=== PATIENT | female | born 1955 | race Caucasian/White ===

== ENCOUNTER 2017-05-25 11:54 | Emergency (ER) | payer MEDICARE, MEDICAID ==
--- NOTE | 2017-05-25 12:19 | EDM.PDOC ---
ED HPI GENERAL MEDICAL PROBLEM - General Chief Complaint: Neurological Problem Stated Complaint: IN BY AMBULANCE Time Seen by Provider: 05/25/17 11:55 Source of Information: Reports: EMS History Limitations: Reports: Altered Mental Status - History of Present Illness INITIAL COMMENTS - FREE TEXT/NARRATIVE: This 62 yo female patient was brought to the ED by [facility] due to not responding. EMS reports the patient normally lives in the [facility] and responds to verbal stimuli. The [facility] employees report that the patient was not responding normally this morning prompting them to call EMS. Upon arrival, the patient was breathing, but not responding to verbal stimuli. Duration: Minutes:, Constant Location: Reports: Generalized Severity: Moderate Improves with: Reports: None Worsens with: Reports: None Associated Symptoms: Reports: Other (altered mentaion) - Related Data Allergies Allergy/AdvReac Type Severity Reaction Status Date / Time fish derived Allergy Unknown Hives Verified 08/17/15 09:17 haloperidol [From Haldol] Allergy Lethargy Verified 08/17/15 09:17 tuberculin, purified protein Allergy Rash Verified 08/17/15 09:17 deriva [Tuberculin,Purif.Prot.Deriv.] plastic adhesive tape Allergy Severe Blisters Uncoded 04/30/14 12:12 KASSIE hose Allergy Severe Blisters Uncoded 05/20/15 18:12 Home Meds: Home Meds Carboxymethylcellulose Sodium [Refresh Tears 0.5%] 1 drop EYEBOTH BID 10/06/14 [ History] Erythromycin Base [Erythromycin 0.5% Ophth Oint] 1 applic TOP BID 10/06/14 [ History] LORazepam [Ativan] 1 mg PO Q4H PRN #14 tablet 08/29/15 [Rx] Morphine [Morphine 20 MG/ML Soln] 5 mg PO Q6H PRN #1 bottle 08/29/15 [Rx] Past Medical History HEENT History: Reports: Allergic Rhinitis, Glaucoma Cardiovascular History: Reports: Hypertension Gastrointestinal History: Reports: Other (See Below) Other Gastrointestinal History: PICA Other Musculoskeletal History: non weight bearing, contracture Other Neuro History: unresponsive at this time, unable to answer questions; comfort cares Other Psychiatric History: PICA Other Dermatologic History: bilateral legs - Past Surgical History Other HEENT Surgeries/Procedures: 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 - Physical Exam Exam: See Below Exam Limited By: No Limitations General Appearance: Lethargic, Severe Distress, Obese Eye Exam: Bilateral Eye: Other (The patient left eye was surgically removed. 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)) Ears: Normal External Exam, Normal Canal, Hearing Grossly Normal, Normal TMs Nose: Normal Inspection, Normal Mucosa, No Blood Throat/Mouth: Normal Inspection, Normal Lips, Normal Teeth, Normal Gums, Normal Oropharynx, Normal Voice, No Airway Compromise Head Exam: Atraumatic, Normocephalic Neck: Normal Inspection, Supple, Non-Tender, Full Range of Motion Respiratory/Chest: No Respiratory Distress, Lungs Clear, Normal Breath Sounds, No Accessory Muscle Use, Chest Non-Tender Cardiovascular: Normal Peripheral Pulses, Regular Rate, Rhythm, No Edema, No Gallop, No JVD, No Murmur, No Rub GI/Abdominal: Normal Bowel Sounds, Soft, Non-Tender, No Organomegaly, No Distention, No Abnormal Bruit, No Mass (Female) Exam: Deferred Rectal (Female) Exam: Deferred Neuro Exam (Abbreviated): Unresponsive Extremities: Normal Inspection, Normal Range of Motion, Non-Tender, Normal Capillary Refill, Pedal Edema Skin Exam: Dry, Intact, Normal Color, No Rash, Cool Course - Vital Signs Last Recorded V/S: Last Vital Signs Temp 35.4 C 05/25/17 11:55 Pulse 66 05/25/17 13:03 Resp 13 05/25/17 13:03 BP 108/49 L 05/25/17 13:03 Pulse Ox 99 05/25/17 13:03 - Orders/Labs/Meds Orders: Active Orders 24 hr Category Date Time Status EKG Documentation Completion [RC] URGENT Care 05/25/17 11:47 Active Labs: Laboratory Tests 05/25/17 05/25/17 05/25/17 Range/Units 11:49 12:00 12:00 WBC 7.1 (5.0-10.0) 10^3/uL RBC 4.00 L (4.2-5.4) 10^6/uL Hgb 12.4 (12.0-16.0) g/dL Hct 38.2 (37.0-47.0) % MCV 95.5 (80-100) fL MCH 31.0 (27.0-34.0) pg MCHC 32.5 L (33.0-35.0) g/dL Plt Count 77 L (150-450) 10^3/uL Neut % (Auto) 85.7 H (42.2-75.2) % Lymph % (Auto) 6.2 L (20.5-50.1) % Barnes % (Auto) 7.4 (2-8) % Eos % (Auto) 0.6 L (1.0-3.0) % Baso % (Auto) 0.1 (0.0-1.0) % Sodium MEQ/L Potassium Chloride Carbon Dioxide Anion Gap BUN Creatinine Est Cr Clr Drug Dosing Estimated GFR (MDRD) BUN/Creatinine Ratio Glucose POC Glucose 103 (70-105) mg/dl Lactic Acid 1.0 (0.5-2.2) mmol/L Calcium Total Bilirubin AST ALT Alkaline Phosphatase Troponin I (0.00-0.02) ng/ml Total Protein Albumin Globulin Albumin/Globulin Ratio Urine Color (YELLOW) Urine Appearance (CLEAR) Urine pH (5.0-9.0) Ur Specific [place] (1.005-1.030) Urine Protein (NEGATIVE) Urine Glucose (UA) (NEGATIVE) Urine Ketones (NEGATIVE) Urine Occult Blood (NEGATIVE) Urine Nitrite (NEGATIVE) Urine Bilirubin (NEGATIVE) Urine Urobilinogen (0.2-1.0) mg/dL Ur Leukocyte Esterase (NEGATIVE) Urine RBC /HPF Urine WBC (0-5/HPF) /HPF Ur Epithelial Cells /HPF Urine Bacteria (0-FEW/HPF) /HPF 05/25/17 05/25/17 Range/Units 12:00 12:22 WBC (5.0-10.0) 10^3/uL RBC (4.2-5.4) 10^6/uL Hgb (12.0-16.0) g/dL Hct (37.0-47.0) % MCV (80-100) fL MCH (27.0-34.0) pg MCHC (33.0-35.0) g/dL Plt Count (150-450) 10^3/uL Neut % (Auto) (42.2-75.2) % Lymph % (Auto) (20.5-50.1) % Barnes % (Auto) (2-8) % Eos % (Auto) (1.0-3.0) % Baso % (Auto) (0.0-1.0) % Sodium 137 MEQ/L Potassium Not Reportable Chloride Not Reportable Carbon Dioxide Not Reportable Anion Gap Not Reportable BUN Not Reportable Creatinine Not Reportable Est Cr Clr Drug Dosing Not Reportable Estimated GFR (MDRD) Not Reportable BUN/Creatinine Ratio Not Reportable Glucose Not Reportable POC Glucose (70-105) mg/dl Lactic Acid (0.5-2.2) mmol/L Calcium Not Reportable Total Bilirubin Not Reportable AST Not Reportable ALT Not Reportable Alkaline Phosphatase Not Reportable Troponin I < 0.02 (0.00-0.02) ng/ml Total Protein Not Reportable Albumin Not Reportable Globulin Not Reportable Albumin/Globulin Ratio Not Reportable Urine Color Yellow (YELLOW) Urine Appearance Cloudy (CLEAR) Urine pH 8.5 (5.0-9.0) Ur Specific [place] 1.015 (1.005-1.030) Urine Protein Trace H (NEGATIVE) Urine Glucose (UA) Negative (NEGATIVE) Urine Ketones Negative (NEGATIVE) Urine Occult Blood Trace-intact H (NEGATIVE) Urine Nitrite Negative (NEGATIVE) Urine Bilirubin Negative (NEGATIVE) Urine Urobilinogen 0.2 (0.2-1.0) mg/dL Ur Leukocyte Esterase Large H (NEGATIVE) Urine RBC 0-5 /HPF Urine WBC 10-20 H (0-5/HPF) /HPF Ur Epithelial Cells Rare /HPF Urine Bacteria Many H (0-FEW/HPF) /HPF Meds: Medications Discontinued Medications Generic Name Dose Route Start Last Admin Trade Name Freq PRN Reason Stop Dose Admin Ceftriaxone Sodium 1 gm/ 50 mls @ 100 mls/hr 05/25/17 12:47 05/25/17 13:02 Sodium Chloride IV 05/25/17 13:16 100 mls/hr ONETIME ONE Administration Departure - Departure Time of Disposition: 13:31 Disposition: Home, Self-Care 01 Condition: Fair Clinical Impression: UTI (urinary tract infection) Qualifiers: Urinary tract infection type: site unspecified Hematuria presence: with hematuria Qualified Code(s): N39.0 - Urinary tract infection, site not specified ; R31.9 - Hematuria, unspecified - Discharge Information Instructions: Urinary Tract Infection, Adult Forms: ED Department Discharge Care Plan Goals: The patient's caregiver was advised of the examination, lab, EKG, x-ray and CT results during the visit. The patient was given an IV dose of Rocephin while in the ED. The patient was discharged with a script for Cipro (500 mg) #10 to take 1 by mouth 2 times per day for 5 days. If the patient has any additional symptoms or concerns, the patient should follow-up with her primary care facility or return to the emergency department. - My Orders Last 24 Hours: My Active Orders 05/25/17 11:47 EKG Documentation Completion [RC] URGENT - Assessment/Plan Last 24 Hours: My Active Orders 05/25/17 11:47 EKG Documentation Completion [RC] URGENT
--- NOTE | 2017-05-25 12:21 | CT ---
Clinical history: Mental alteration 62-year-old retirement ([facility]) female patient. Scan technique: Volume acquisition of data emergency unenhanced CT scan of the head and brain obtain ed with patient lying supine on the Siemens multi slice CT scanner [place], [place]. All data archived in the PACS system for storage, reformatting and study. Patient ro tation artifact. Interpretation: Abnormal. Scattered microvascular ischemic changes in the periventricular white matter and asymmetric large in farct right parietal lobe. Uniformly thick bony calvarium. Symmetric peterson-white matter pattern with underlying mirror-image nor mal ventricular system. Physiologic midline pineal and symmetric choroid plexus calcifications. No sign of skull fracture, underlying brain contusion or epidural/subdural hematoma. No supratentorial or posterior fossa mass lesion. Cerebellum and brainstem unremarkable. No hydrocep halus. No sign of acute intracerebral/intraventricular/subarachnoid bleed. CONCLUSION: Signs of cerebral ischemia (infarcts). No skull fractures or evidence of closed head tra theresa. No hydrocephalus or intracranial mass.
--- NOTE | 2017-05-25 12:23 | CR ---
Clinical history: 62-year-old female mental alterations ("ischemic infarcts" CT scan head). 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 Patient rotated but normal cardiac silhouette without alveolar edema or dependent effusion. Symmetric prominence of proximal pulmonary artery segments (underlying lymphadenopathy?) but no poly pheral lung mass or focal lobar pneumonia (atelectasis left lung base). No rib fractures or pneumothorax.
[2017-05-25] MEDS ORDERED: cefTRIAXone 1 GM in Sodium Chloride 0.9% 50 ML IV ONE (12:47)
[2017-05-25 12:53] LABS: SODIUM,NA 137 MEQ/L
[2017-05-25 13:04] VITALS: BP 108/49
--- NOTE | 2017-05-26 18:26 | EKG ---
05/25/2017 - VENITA LONG - This 12-lead EKG shows a normal sinus rhythm with a ventricular rate of 60. Normal axis and intervals. No acute ST-segment or T-wave changes. [facility] /[id number]
== END 2017-05-25 14:00 | disposition home or self-care (01) ==
LOC: DL.ED 11:54
DX: N39.0 Urinary tract infection, site not specified (principal); I10 Essential (primary) hypertension; Z91.018 Allergy to other foods; Z88.8 Allergy status to other drugs, medicaments and biological substances; Z91.048 Other nonmedicinal substance allergy status; Z90.01 Acquired absence of eye
CPT/HCPCS: 36415; 70450; 71010; 80053; 81001; 82962; 83605; 84484; 85025; 87086; 87088; 87186; 93005; 93010; 96365; 99284; J0696; J7050

== ENCOUNTER 2017-12-23 14:10 | Emergency (ER) | payer MEDICARE, MEDICAID ==
[2017-12-23 15:31] VITALS: BP 94/53
[2017-12-23 16:35] LABS: CHLORIDE,CL 97 mmol/L (101-111); SODIUM,NA 133 mmol/L (135-145)
--- NOTE | 2017-12-23 17:05 | EDM.PDOC ---
Scribed by Tina Vanegas 12/23/17 [id number] for Mukund Becerra PA ED HPI GENERAL MEDICAL PROBLEM - General Chief Complaint: Gastrointestinal Problem Stated Complaint: [id number] throwing up Time Seen by Provider: 12/23/17 15:53 Source of Information: Reports: RN, RN Notes Reviewed, Other (caregiver) History Limitations: Reports: Physical Impairment (nonverbal) - History of Present Illness INITIAL COMMENTS - FREE TEXT/NARRATIVE: Patient presents with vomiting today (numerous times). [facility] patient (non verbal). Onset: Today Location: Reports: Abdomen Quality: Reports: Other (vomiting) Severity: Moderate Improves with: Reports: None Worsens with: Reports: None Associated Symptoms: Reports: No Other Symptoms - Related Data Allergies Allergy/AdvReac Type Severity Reaction Status Date / Time fish derived Allergy Unknown Hives Verified 12/23/17 16:11 haloperidol [From Haldol] Allergy Lethargy Verified 12/23/17 16:11 tuberculin, purified protein Allergy Rash Verified 12/23/17 16:11 deriva [Tuberculin,Purif.Prot.Deriv.] plastic adhesive tape Allergy Severe Blisters Uncoded 04/30/14 12:12 KASSIE hose Allergy Severe Blisters Uncoded 05/20/15 18:12 Home Meds: Home Meds Carboxymethylcellulose Sodium [Refresh Tears 0.5%] 1 drop EYEBOTH DAILY [History] Cholecalciferol (Vitamin D3) [Vitamin D3] 400 units PO DAILY 12/23/17 [History] Hydrochlorothiazide [Hydrochlorothiazide] 25 mg PO DAILY 12/23/17 [History] Latanoprost [Latanoprost] 1 drop EYERT QPM 12/23/17 [History] Lisinopril [Lisinopril] 5 mg PO DAILY 12/23/17 [History] Magnesium Hydroxide [Milk of Magnesia] 30 ml PO DAILY 12/23/17 [History] Past Medical History HEENT History: Reports: Allergic Rhinitis, Glaucoma, Other (See Below) ( nonverbal) Cardiovascular History: Reports: Hypertension Respiratory History: Reports: Other (See Below) (history aspiration pneumonia) Gastrointestinal History: Reports: Other (See Below) Other Gastrointestinal History: PICA Other Musculoskeletal History: non weight bearing, contracture Other Neuro History: unresponsive at this time, unable to answer questions; comfort cares Psychiatric History: Reports: Other (See Below) Other Psychiatric History: PICA Other Dermatologic History: bilateral legs - Past Surgical History Other HEENT Surgeries/Procedures: 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 ED EXAM, GI/ABD - Physical Exam Exam: See Below Exam Limited By: Other (nonverbal) Eyes: Left: Normal Appearance (left eye closed) Ears: Normal External Exam, Normal Canal, Hearing Grossly Normal, Normal TMs Nose: Normal Inspection, Normal Mucosa, No Blood Throat/Mouth: Normal Inspection, Normal Lips, Normal Teeth, Normal Gums, Normal Oropharynx, Normal Voice, No Airway Compromise Head: Atraumatic, Normocephalic Neck: Normal Inspection, Supple, Non-Tender, Full Range of Motion Respiratory/Chest: Rhonchi (left upper lobe) Cardiovascular: Normal Peripheral Pulses, Regular Rate, Rhythm, No Edema, No Gallop, No JVD, No Murmur, No Rub GI/Abdominal Exam: Other (obese) (Female) Exam: Deferred Rectal (Female) Exam: Deferred Skin Exam: Warm, Dry, Intact, Normal Color, No Rash Course - Vital Signs Last Recorded V/S: Last Vital Signs Temp 35.3 C 12/23/17 15:26 Pulse 54 L 12/23/17 15:26 Resp 20 12/23/17 15:26 BP 94/53 L 12/23/17 15:26 Pulse Ox 95 12/23/17 15:26 - Orders/Labs/Meds Orders: Active Orders 24 hr Category Date Time Status Chest 1V Frontal [CR] Urgent Exams 12/23/17 15:52 Taken Labs: Laboratory Tests 12/23/17 12/23/17 Range/Units 16:10 16:10 WBC 4.7 L (5.0-10.0) 10^3/uL RBC 3.68 L (4.2-5.4) 10^6/uL Hgb 12.1 (12.0-16.0) g/dL Hct 36.9 L (37.0-47.0) % MCV 100.3 H D (80-100) fL MCH 32.9 (27.0-34.0) pg MCHC 32.8 L (33.0-35.0) g/dL Plt Count 166 D (150-450) 10^3/uL Neut % (Auto) 74.7 (42.2-75.2) % Lymph % (Auto) 18.5 L (20.5-50.1) % [place] % (Auto) 6.2 (2-8) % Eos % (Auto) 0.4 L (1.0-3.0) % Baso % (Auto) 0.2 (0.0-1.0) % Sodium 133 L D (135-145) mmol/L Potassium 4.3 D (3.6-5.0) mmol/L Chloride 97 L D (101-111) mmol/L Carbon Dioxide 29.0 (21.0-31.0) mmol/L Anion Gap 11.3 BUN 33 H D (7-18) mg/dL Creatinine 0.8 (0.6-1.3) mg/dL Est Cr Clr Drug Dosing 60.31 mL/min Estimated GFR (MDRD) > 60 BUN/Creatinine Ratio 41.25 Glucose 108 H (74-105) mg/dL Calcium 8.5 (8.4-10.2) mg/dl Total Bilirubin 0.4 (0.2-1.0) mg/dL AST 32 (10-42) IU/L ALT 40 (10-60) IU/L Alkaline Phosphatase 163 H (42-121) IU/L Total Protein 6.6 L (6.7-8.2) g/dl Albumin 3.3 (3.2-5.5) g/dl Globulin 3.3 Albumin/Globulin Ratio 1.00 Departure - Departure Time of Disposition: 17:01 Disposition: Home, Self-Care 01 Condition: Fair Clinical Impression: Bronchitis Aspiration of vomitus Qualifiers: Encounter type: initial encounter Qualified Code(s): T17.910A - Gastric contents in respiratory tract, part unspecified causing asphyxiation, initial encounter - Discharge Information Instructions: Acute Bronchitis, Adult, [id number] Forms: ED Department Discharge Care Plan Goals: The patient's care provider was advised of the examination, lab and x-ray results during the visit. The patient was given an injection of Rocephin while in the ED. The patient was discharged with a script for Azithromycin (250 mg) # 6 to be given 2 by mouth on day 1 and 1 by mouth on days 2-6. If the patient has any additional symptoms or concerns, the patient should follow-up with her primary care facility or return to the emergency department. - My Orders Last 24 Hours: My Active Orders 12/23/17 15:52 Chest 1V Frontal [CR] Urgent - Assessment/Plan Last 24 Hours: My Active Orders 12/23/17 15:52 Chest 1V Frontal [CR] Urgent I have read and agree with the documentation that has been completed regarding this visit. By signing this record, I attest that the documentation was completed in my physical presence and is an accurate record of the encounter.
[2017-12-23] MEDS: cefTRIAXone 1 GM, Lidocaine 1% 2.1 ML IM ONE ×2 (17:21)
== END 2017-12-23 17:39 | disposition home or self-care (01) ==
LOC: DL.ED 14:10
DX: T17.910A Gastric contents in respiratory tract, part unspecified causing asphyxiation, initial encounter (principal); J40 Bronchitis, not specified as acute or chronic; I10 Essential (primary) hypertension; Z91.013 Allergy to seafood; Z88.5 Allergy status to narcotic agent; Z88.8 Allergy status to other drugs, medicaments and biological substances; Z79.899 Other long term (current) drug therapy
CPT/HCPCS: 36415; 71045; 80053; 85025; 96372; 99284; J0696

== ENCOUNTER 2019-01-19 20:29 | Emergency (ER) | payer MEDICARE, MEDICAID ==
[2019-01-19] MEDS ORDERED: Ondansetron 4 MG Tab.DIS PO ONE (20:30)
[2019-01-19] MEDS ORDERED: Lactated Ringers 1,000 ML IV ONE (20:39)
[2019-01-19] MEDS ORDERED: Sodium Chloride 0.9% 10 ML Syringe FLUSH PRN (20:39)
[2019-01-19 21:19] LABS: ANION GAP 13.8; CHLORIDE,CL 100 mmol/L (101-111); SODIUM,NA 135 mmol/L (135-145)
[2019-01-19] MEDS ORDERED: Ondansetron 4 MG/2 ML SDV IV ONE (21:23)
--- NOTE | 2019-01-19 22:13 | EDM.PDOC ---
ED HPI GENERAL MEDICAL PROBLEM - General Chief Complaint: Gastrointestinal Problem Stated Complaint: AMBULANCE Time Seen by Provider: 01/19/19 20:45 Source of Information: Reports: EMS, EMS Notes Reviewed, RN, RN Notes Reviewed, Other ([facility] staff) History Limitations: Reports: Language Barrier (non-verbal, severe developmental disability) - History of Present Illness INITIAL COMMENTS - FREE TEXT/NARRATIVE: Pt to Er from [facility] home per [facility] with c/o vomiting. [facility] staff states pt became lethargic and began vomiting at 1900. Loose stools since 1900 as well. Decreased appetite today. Patient is non-verbal, severe developmental disability. Has hx of aspiration pneumonia. Staff denies recent fever. Onset: Today, Sudden - Related Data Allergies Allergy/AdvReac Type Severity Reaction Status Date / Time fish derived Allergy Unknown Hives Verified 08/23/18 12:43 egg Allergy Cannot Verified 07/23/18 09:39 Remember haloperidol [From Haldol] Allergy Lethargy Verified 08/23/18 12:43 shellfish derived Allergy Rash Verified 07/23/18 09:39 tuberculin, purified protein Allergy Rash Verified 08/23/18 12:43 deriva [Tuberculin,Purif.Prot.Deriv.] plastic adhesive tape Allergy Severe Blisters Uncoded 04/30/14 12:12 KASSIE hose Allergy Severe Blisters Uncoded 05/20/15 18:12 Home Meds: Home Meds Carboxymethylcellulose Sodium [Refresh Tears 0.5%] 1 drop EYEBOTH DAILY [History] Cholecalciferol (Vitamin D3) [Vitamin D3] 400 units PO DAILY 12/23/17 [History] Latanoprost 1 drop EYERT QPM 12/23/17 [History] Lisinopril 2.5 mg PO DAILY 12/23/17 [History] Magnesium Hydroxide [Milk of Magnesia] 20 ml PO DAILY 12/23/17 [History] hydroCHLOROthiazide [Hydrochlorothiazide] 12.5 mg PO DAILY 12/23/17 [History] Erythromycin Base [Erythromycin 0.5% Ophth Oint] 1 drop EYELF BID 07/23/18 [ History] diphenhydrAMINE [Benadryl] 25 mg PO ASDIRECTED PRN 08/23/18 [History] tiZANidine [Zanaflex] 2 mg PO Q8HR PRN 01/19/19 [History] Past Medical History HEENT History: Reports: Allergic Rhinitis, Glaucoma, Impaired Vision, Other ( See Below) Other HEENT History: blind in right eye Cardiovascular History: Reports: Hypertension Respiratory History: Reports: Other (See Below) Gastrointestinal History: Reports: Other (See Below) Other Gastrointestinal History: PICA Genitourinary History: Reports: Urinary Incontinence MEMBERSHIP SALES MANAGER History: Reports: None Musculoskeletal History: Reports: Other (See Below) Other Musculoskeletal History: non weight bearing, contracture Neurological History: Reports: Cerebral Palsy Other Neuro History: unresponsive at this time, unable to answer questions; comfort cares Psychiatric History: Reports: Other (See Below) Other Psychiatric History: PICA Endocrine/Metabolic History: Reports: None Hematologic History: Reports: Anemia Immunologic History: Reports: None Oncologic (Cancer) History: Reports: None Dermatologic History: Reports: Other (See Below) Other Dermatologic History: bilateral legs - Infectious Disease History Infectious Disease History: Reports: MRSA - Past Surgical History Other HEENT Surgeries/Procedures: 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 Social & Family History - Family History Family Medical History: Noncontributory - Tobacco Use Smoking Status *Q: Never Smoker - Caffeine Use Caffeine Use: Reports: None - Recreational Drug Use Recreational Drug Use: No - Living Situation & Occupation Living situation: Reports: Single, Extended Care Facility Occupation: Disabled ED ROS GENERAL - Review of Systems Review Of Systems: ROS reveals no pertinent complaints other than HPI. ED EXAM, GI/ABD - Physical Exam Exam: See Below Exam Limited By: Language Barrier General Appearance: Lethargic, Mild Distress Eyes: Bilateral: Erythema (lids erythematous bilateral, some green drainage) Ears: Normal External Exam, Hearing Grossly Normal Nose: Normal Inspection Throat/Mouth: Normal Inspection, Normal Lips, Normal Gums, No Airway Compromise Head: Atraumatic, Normocephalic Neck: Normal Inspection, Supple, Non-Tender, Limited Range of Motion Respiratory/Chest: No Respiratory Distress, No Accessory Muscle Use, Chest Non- Tender, Crackles (bilateral bases) Cardiovascular: Normal Peripheral Pulses, Regular Rate, Rhythm, No Edema, No Gallop, No JVD, No Murmur, No Rub, Bradycardia GI/Abdominal Exam: Soft, No Organomegaly, No Distention, No Abnormal Bruit, No Mass, Tender, Abnormal Bowel Sounds (hyperactive) (Female) Exam: Deferred Rectal (Female) Exam: Deferred Back Exam: Normal Inspection, Decreased Range of Motion Extremities: Normal Inspection, No Pedal Edema, Leg Pain (bilateral, not new), Limited Range of Motion Neurological: Other (patient does not give indication of responding, lethargic when not vomiting. ) Psychiatric: Normal Mood Skin Exam: Warm, Dry, Intact, No Rash, Pallor Lymphatic: No Adenopathy Course - Vital Signs Last Recorded V/S: Last Vital Signs Temp 96.2 F 01/19/19 21:36 Pulse 47 L 01/19/19 22:40 Resp 12 01/19/19 22:40 BP 125/40 L 01/19/19 22:40 Pulse Ox 99 01/19/19 22:40 - Orders/Labs/Meds Labs: Laboratory Tests 01/19/19 01/19/19 01/19/19 Range/Units 20:49 20:49 22:28 WBC 6.5 (5.0-10.0) 10^3/uL RBC 3.97 L (4.2-5.4) 10^6/uL Hgb 12.4 D (12.0-16.0) g/dL Hct 37.6 (37.0-47.0) % MCV 94.7 D (80-100) fL MCH 31.2 (27.0-34.0) pg MCHC 33.0 (33.0-35.0) g/dL Plt Count 222 D (150-450) 10^3/uL Neut % (Auto) 68.4 (42.2-75.2) % Lymph % (Auto) 20.2 L (20.5-50.1) % [place] % (Auto) 8.9 H (2-8) % Eos % (Auto) 2.0 (1.0-3.0) % Baso % (Auto) 0.5 (0.0-1.0) % Sodium 135 (135-145) mmol/L Potassium 3.8 (3.6-5.0) mmol/L Chloride 100 L D (101-111) mmol/L Carbon Dioxide 25.0 (21.0-31.0) mmol/L Anion Gap 13.8 BUN 25 H (7-18) mg/dL Creatinine 0.7 (0.6-1.3) mg/dL Est Cr Clr Drug Dosing 68.05 mL/min Estimated GFR (MDRD) > 60 BUN/Creatinine Ratio 35.71 Glucose 153 H (74-105) mg/dL Calcium 8.8 D (8.4-10.2) mg/dl Total Bilirubin 0.3 (0.2-1.0) mg/dL AST 21 (10-42) IU/L ALT 15 (10-60) IU/L Alkaline Phosphatase 127 H (42-121) IU/L Troponin I < 0.02 (0.00-0.02) ng/ml Total Protein 6.9 (6.7-8.2) g/dl Albumin 3.5 (3.2-5.5) g/dl Globulin 3.4 Albumin/Globulin Ratio 1.03 Urine Color Light yellow (YELLOW) Urine Appearance Clear (CLEAR) Urine pH 7.5 (5.0-9.0) Ur Specific [place] 1.020 (1.005-1.030) Urine Protein Negative (NEGATIVE) Urine Glucose (UA) Negative (NEGATIVE) Urine Ketones Negative (NEGATIVE) Urine Occult Blood Negative (NEGATIVE) Urine Nitrite Negative (NEGATIVE) Urine Bilirubin Negative (NEGATIVE) Urine Urobilinogen 0.2 (0.2-1.0) mg/dL Ur Leukocyte Esterase Negative (NEGATIVE) Meds: Medications Discontinued Medications Generic Name Dose Route Start Last Admin Trade Name Freq PRN Reason Stop Dose Admin Furosemide 40 mg 01/19/19 22:14 01/19/19 22:29 Lasix IVPUSH 01/19/19 22:15 40 mg NOW ONE Administration Lactated Ringer's 1,000 mls @ 999 mls/hr 01/19/19 20:39 01/19/19 21:02 Ringers, Lactated IV 01/19/19 21:39 999 mls/hr .BOLUS ONE Administration Ondansetron HCl 4 mg 01/19/19 21:23 01/19/19 21:29 Zofran IV 01/19/19 21:24 4 mg ONETIME ONE Administration Ondansetron HCl Confirm 01/19/19 23:25 01/19/19 23:27 Zofran Odt Administered 01/19/19 23:26 Not Given Dose 16 mg .ROUTE .STK-MED ONE Sodium Chloride 10 ml 01/19/19 20:39 01/19/19 21:30 Saline Flush FLUSH 10 ml ASDIRECTED PRN Administration Keep Vein Open - Radiology Interpretation Free Text/Narrative:: Chest xray: FINDINGS: Lungs: Development of mild interstitial pulmonary edema with superimposed alveolar edema versus atelectasis versus pneumonia in the right and left lower lobes. There is linear scarring in the left lingula, unchanged. Pleural space: Interval development of a small left pleural effusion. Heart/Mediastinum: Stable moderate enlargement of the cardiac silhouette. Vasculature: Stable vascular calcifications in the aorta. Bones/joints: Stable degenerative changes in the spine and shoulders. Bones are diffusely osteopenic. Findings are stable. IMPRESSION: 1. Development of mild interstitial pulmonary edema with superimposed alveolar edema versus atelectasis versus pneumonia in the right and left lower lobes. Recommend followup chest x-ray in 4- 6 weeks to ensure resolution. 2. Interval development of a small left pleural effusion. 3. Incidental/nonacute findings are listed in the report. See rad report Departure - Departure Time of Disposition: 23:19 Disposition: Home, Self-Care 01 Condition: Fair Clinical Impression: Gastroenteritis, Vomiting Diarrhea Qualifiers: Diarrhea type: unspecified type Qualified Code(s): R19.7 - Diarrhea, unspecified - Discharge Information *PRESCRIPTION DRUG MONITORING PROGRAM REVIEWED*: Not Applicable *COPY OF PRESCRIPTION DRUG MONITORING REPORT IN PATIENT IRVING: Not Applicable Instructions: Nausea, Adult, [id number], Diarrhea, Adult, [id number] Referrals: PCP,None [Primary Care Provider] - Forms: ED Department Discharge Additional Instructions: Keep Head of Bed at 30 degrees or higher when sleeping to prevent aspiration may use imodium as directed for diarrhea Hold food while still vomiting Encourage fluids to prevent dehydration when vomiting stops RX: Zofran
[2019-01-19] MEDS ORDERED: Furosemide 40 MG/4 ML VIAL IVPUSH ONE (22:14)
[2019-01-19 22:41] VITALS: BP 125/40; PULSE 47
[2019-01-19] MEDS ORDERED: Ondansetron 4 MG Tab.DIS ONE (23:25)
== END 2019-01-19 23:27 | disposition home or self-care (01) ==
LOC: DL.ED 20:29
DX: K52.9 Noninfective gastroenteritis and colitis, unspecified (principal); I10 Essential (primary) hypertension; Z79.899 Other long term (current) drug therapy; Z91.012 Allergy to eggs; Z91.013 Allergy to seafood; Z88.8 Allergy status to other drugs, medicaments and biological substances; Z88.7 Allergy status to serum and vaccine
CPT/HCPCS: 36415; 71045; 80053; 81003; 84484; 85025; 93005; 96365; 96366; 96375; 99285; J1940; J2405; J7120; 99283; A9270-GY

== ENCOUNTER 2020-01-29 14:19 | Observation (INO) | payer MEDICARE, MEDICAID ==
[2020-01-29] MEDS ORDERED: Albuterol 0.083% 2.5 MG/3 ML Neb Soln NEB ONE (14:41)
--- NOTE | 2020-01-29 14:55 | EDM.PDOC ---
ED HPI GENERAL MEDICAL PROBLEM - General Chief Complaint: Respiratory Problem Stated Complaint: UNKNOWN Time Seen by Provider: 01/29/20 14:30 Source of Information: Reports: EMS, EMS Notes Reviewed, RN, RN Notes Reviewed, Other (Photographic Colorist from [facility]) History Limitations: Reports: Language Barrier, Other (Mental retardation, Non- verbal) - History of Present Illness INITIAL COMMENTS - FREE TEXT/NARRATIVE: Pt presents to ER per [facility] after [facility] home child care provider requested she be brought to the ER. Photographic Colorist states they first noticed the patient cough yesterday morning. She states the patient normally has a temp of 95, and the temp has been over 98 today. Photographic Colorist reports that this morning they noticed the patient began having labored breathing. Patient has a history of aspiration pneumonia. All residents at [facility] have been on a seven-day watch, and employees have been screened prior to entering the home. Has no history of travel, no history of exposure to anyone with known symptoms or diagnosis of COVID-19. Patient is nonverbal. Photographic Colorist states they were concerned the patient may be having cramps in her legs as she normally does, and patient was treated with her PRN pain medication. Onset: Gradual Location: Reports: Chest - Related Data Allergies Allergy/AdvReac Type Severity Reaction Status Date / Time fish derived Allergy Unknown Hives Verified 01/29/20 14:32 egg Allergy Cannot Verified 01/29/20 14:32 Remember haloperidol [From Haldol] Allergy Lethargy Verified 01/29/20 14:32 shellfish derived Allergy Rash Verified 01/29/20 14:32 tuberculin, purified protein Allergy Rash Verified 01/29/20 14:32 deriva [Tuberculin,Purif.Prot.Deriv.] plastic adhesive tape Allergy Severe Blisters Uncoded 01/29/20 14:32 KASSIE hose Allergy Severe Blisters Uncoded 01/29/20 14:32 Home Meds: Home Meds Carboxymethylcellulose Sodium [Refresh Tears 0.5%] 1 drop EYEBOTH DAILY [History] Cholecalciferol (Vitamin D3) [Vitamin D3] 1,000 units PO DAILY 12/23/17 [History ] Latanoprost 1 drop EYERT QPM 12/23/17 [History] Lisinopril 2.5 mg PO DAILY 12/23/17 [History] Magnesium Hydroxide [Milk of Magnesia] 20 ml PO DAILY 12/23/17 [History] hydroCHLOROthiazide [Hydrochlorothiazide] 12.5 mg PO DAILY 12/23/17 [History] Erythromycin Base [Erythromycin 0.5% Ophth Oint] 1 drop EYELF BID 07/23/18 [ History] tiZANidine [Zanaflex] 2 mg PO Q8HR PRN 01/19/19 [History] Methylcellulose (with Sugar) [Citrucel] 15 ml PO DAILY 01/29/20 [History] Vits A and D/White Pet/Lanolin [A and D Ointment] 1 dose TRDERM ASDIRECTED 01/28 [History] Past Medical History HEENT History: Reports: Allergic Rhinitis, Glaucoma, Impaired Vision, Other ( See Below) Other HEENT History: blind in right eye Cardiovascular History: Reports: Hypertension Respiratory History: Reports: Other (See Below) Gastrointestinal History: Reports: Other (See Below) Other Gastrointestinal History: PICA Genitourinary History: Reports: Urinary Incontinence TRIAL 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 Musculoskeletal History: Reports: Other (See Below) Other Musculoskeletal History: non weight bearing, contracture Neurological History: Reports: Cerebral Palsy Other Neuro History: unresponsive at this time, unable to answer questions; comfort cares Psychiatric History: Reports: Other (See Below) Other Psychiatric History: PICA Endocrine/Metabolic History: Reports: None Hematologic History: Reports: Anemia Immunologic History: Reports: None Oncologic (Cancer) History: Reports: None Dermatologic History: Reports: Other (See Below) Other Dermatologic History: bilateral legs - Infectious Disease History Infectious Disease History: Reports: MRSA - Past Surgical History Other HEENT Surgeries/Procedures: 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 ED EXAM, GENERAL - Physical Exam Exam: See Below Exam Limited By: Language Barrier (Non verbal) General Appearance: Alert, Moderate Distress (labored breathing) Eye Exam: Bilateral Eye: Other (Left Closed, light yellow matter noted; Right eye is hazy/ cataract) Ears: Normal External Exam Nose: Normal Inspection Throat/Mouth: Normal Inspection, No Airway Compromise Head: Atraumatic, Normocephalic Neck: Normal Inspection Respiratory/Chest: Decreased Breath Sounds, Crackles (Throughout), Wheezing ( Throughout), Accessory Muscle Use Cardiovascular: Normal Peripheral Pulses, Regular Rate, Rhythm, No Edema, No Gallop, No JVD, No Murmur, No Rub Peripheral Pulses: 2+: Radial (L), Radial (R) GI/Abdominal: Distended, Rigid (Firm), Abnormal Bowel Sounds (Hypoactive) (Female) Exam: Deferred Rectal (Female) Exam: Deferred Back Exam: Normal Inspection, Decreased Range of Motion Extremities: Normal Inspection, Limited Range of Motion Neurological: Alert Psychiatric: Anxious Skin Exam: Warm, Dry, Intact, Normal Color, No Rash Lymphatic: No Adenopathy Course - Vital Signs Last Recorded V/S: Last Vital Signs Temp 98.6 F 01/29/20 14:20 Pulse 90 01/29/20 14:41 Resp 36 H 01/29/20 14:20 BP 126/70 01/29/20 14:20 Pulse Ox 98 01/29/20 14:41 - Orders/Labs/Meds Orders: Active Orders 24 hr Category Date Time Status Admission Diagnosis [ADT] Stat ADT 01/29/20 16:45 Ordered Patient Status [ADT] Routine ADT 01/29/20 16:45 Active EKG Documentation Completion [RC] STAT Care 01/29/20 14:35 Active Peripheral IV Care [RC] . DIRECTED Care 01/29/20 14:37 Active RT Aerosol Therapy [RC] ASDIRECTED Care 01/29/20 14:41 Active Chest w Cont [CT] Urgent Exams 01/29/20 16:27 Stop Req CULTURE BLOOD [BC] Stat Lab 01/29/20 14:57 Received CULTURE BLOOD [BC] Stat Lab 01/29/20 15:05 Results Sodium Chloride 0.9% [Saline Flush] Med 01/29/20 14:36 Active 10 ml FLUSH ASDIRECTED PRN Blood Culture x2 Reflex Set [OM.PC] Stat Oth 01/29/20 14:37 Ordered Peripheral IV Insertion Adult [OM.PC] Stat Oth 01/29/20 14:35 Ordered Medication Orders Sodium Chloride (Saline Flush) 10 ml FLUSH ASDIRECTED PRN PRN Reason: Keep Vein Open Last Admin: 01/29/20 16:16 Dose: 10 ml Labs: Laboratory Tests 01/29/20 01/29/20 01/29/20 Range/Units 14:57 14:57 14:57 WBC 12.2 H (5.0-10.0) 10^3/uL RBC 3.95 L (4.2-5.4) 10^6/uL Hgb 12.5 (12.0-16.0) g/dL Hct 37.3 (37.0-47.0) % MCV 94.4 (80-100) fL MCH 31.6 (27.0-34.0) pg MCHC 33.5 (33.0-35.0) g/dL Plt Count 240 (150-450) 10^3/uL Neut % (Auto) 84.2 H (42.2-75.2) % Lymph % (Auto) 5.6 L (20.5-50.1) % [place] % (Auto) 10.0 H (2-8) % Eos % (Auto) 0.1 L (1.0-3.0) % Baso % (Auto) 0.1 (0.0-1.0) % D-Dimer, Quantitative > 5000 H (0-400) ng/mL Sodium 135 L (136-145) mmol/L Potassium 5.3 H (3.5-5.1) mmol/L Chloride 99 (98-107) mmol/L Carbon Dioxide 27 (21-32) mmol/L Anion Gap 14.3 H (7-13) mEq/L BUN 36 H (7-18) mg/dL Creatinine 1.18 H (0.55-1.02) mg/dL Est Cr Clr Drug Dosing 41.59 mL/min Estimated GFR (MDRD) 46 BUN/Creatinine Ratio 30.5 (No establ ref range) Glucose 134 H (74-99) mg/dL Lactic Acid (0.4-2.0) mmol/L Calcium 8.8 (8.5-10.1) mg/dL Total Bilirubin 0.3 (0.2-1.0) mg/dL AST 347 H (15-37) U/L ALT 286 H (14-59) U/L Alkaline Phosphatase 409 H (46-116) U/L Lactate Dehydrogenase 432 H (81-234) U/L Creatine Kinase 102 (16-191) U/L Troponin I < 0.017 (0.000-0.056) ng/mL C-Reactive Protein 18.8 H (0.0-0.9) mg/dL B-Natriuretic Peptide 36 (0-100) pg/ml Total Protein 7.1 (6.4-8.2) g/dL Albumin 3.1 L (3.4-5.0) g/dL Globulin 4.0 Albumin/Globulin Ratio 0.78 04/20/20 Range/Units 14:57 WBC (5.0-10.0) 10^3/uL RBC (4.2-5.4) 10^6/uL Hgb (12.0-16.0) g/dL Hct (37.0-47.0) % MCV (80-100) fL MCH (27.0-34.0) pg MCHC (33.0-35.0) g/dL Plt Count (150-450) 10^3/uL Neut % (Auto) (42.2-75.2) % Lymph % (Auto) (20.5-50.1) % [place] % (Auto) (2-8) % Eos % (Auto) (1.0-3.0) % Baso % (Auto) (0.0-1.0) % D-Dimer, Quantitative (0-400) ng/mL Sodium (136-145) mmol/L Potassium (3.5-5.1) mmol/L Chloride (98-107) mmol/L Carbon Dioxide (21-32) mmol/L Anion Gap (7-13) mEq/L BUN (7-18) mg/dL Creatinine (0.55-1.02) mg/dL Est Cr Clr Drug Dosing mL/min Estimated GFR (MDRD) BUN/Creatinine Ratio (No establ ref range) Glucose (74-99) mg/dL Lactic Acid 1.4 (0.4-2.0) mmol/L Calcium (8.5-10.1) mg/dL Total Bilirubin (0.2-1.0) mg/dL AST (15-37) U/L ALT (14-59) U/L Alkaline Phosphatase (46-116) U/L Lactate Dehydrogenase (81-234) U/L Creatine Kinase (16-191) U/L Troponin I (0.000-0.056) ng/mL C-Reactive Protein (0.0-0.9) mg/dL B-Natriuretic Peptide (0-100) pg/ml Total Protein (6.4-8.2) g/dL Albumin (3.4-5.0) g/dL Globulin Albumin/Globulin Ratio Meds: Medications Generic Name Dose Route Start Last Admin Trade Name Freq PRN Reason Stop Dose Admin Sodium Chloride 10 ml 01/29/20 14:36 01/29/20 16:16 Saline Flush FLUSH 10 ml ASDIRECTED PRN Administration Keep Vein Open Discontinued Medications Generic Name Dose Route Start Last Admin Trade Name Freq PRN Reason Stop Dose Admin Albuterol 2.5 mg 01/29/20 14:41 01/29/20 14:57 Proventil Neb Soln NEB 01/29/20 14:42 2.5 mg ONETIME ONE Administration Iopamidol 100 ml 01/29/20 16:28 Isovue-370 (76%) IVPUSH 01/29/20 16:29 ONETIME ONE - Radiology Interpretation Free Text/Narrative:: Chest x-ray: 1. Generalized volume loss and asymmetric new left lower lobe atelectasis consistent with poor inspiratory effort. 2. Normal cardiac silhouette without signs of pulmonary vascular congestion, cephalization of flow, alveolar edema or dependent pleural effusion. 3. No new lung mass lesion or focal lobar pneumonia, chronic middle lobe scarring. 4. No pneumothorax or pneumomediastinum. Midline tracheobronchial airway unremarkable. No foreign bodies. 5. No free subdiaphragmatic air. Occlusion: Poor inspiration. Left lower lobe atelectasis. Abdomen x-ray: 1. Nonspecific plain film exam of the abdomen. No plain film evidence of ascites. 2. Platelike atelectasis left lower lobe. 3. No foreign body, abdominal soft tissue mass lesion or signs of mechanical bowel obstruction. 4. No pathologic calcifications. 5. 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 See radiologist report - Re-Assessments/Exams Free Text/Narrative Re-Assessment/Exam: 01/29/20 16:56 Discussed patient CODE STATUS with tire center manager at [facility]. Manufacturing Quality Technician had talked to the brother who is the guardian, who states IV, and IV fluids, IV medications that are necessary are wanted. No intubation, no advanced cardiac life support. Discussed patient case with Dr. BOWDEN who agreed to accept the patient for observation admission. Patient's d-dimer is greater than 5000. Some swelling to the legs bilaterally, but no redness or warmth. Patient heart shows allergies to fish derived products, as well as shellfish. Patient has had multiple CTs in the past, but none with contrast. Decision was made to do a bilateral venous ultrasound of the lower extremities. Departure - Departure Time of Disposition: 16:59 Disposition: Refer to Observation Condition: Fair Clinical Impression: Shortness of breath, Elevated d-dimer, Elevated liver enzymes, History of pica - Discharge Information *PRESCRIPTION DRUG MONITORING PROGRAM REVIEWED*: No *COPY OF PRESCRIPTION DRUG MONITORING REPORT IN PATIENT IRVING: No Forms: ED Department Discharge Sepsis Event Note - Focused Exam Vital Signs: Vital Signs Temp Pulse Resp BP Pulse Ox Pulse Ox 01/29/20 14:41 90 98 01/29/20 14:20 98.6 F 96 36 H 126/70 95 Date Exam was Performed: 01/29/20 Time Exam was Performed: 16:56 - My Orders Last 24 Hours: My Active Orders 01/29/20 14:35 EKG Documentation Completion [RC] STAT Peripheral IV Insertion Adult [OM.PC] Stat 01/29/20 14:36 Sodium Chloride 0.9% [Saline Flush] 10 ml FLUSH ASDIRECTED PRN 01/29/20 14:37 Peripheral IV Care [RC] . DIRECTED Blood Culture x2 Reflex Set [OM.PC] Stat 01/29/20 14:41 RT Aerosol Therapy [RC] ASDIRECTED 01/29/20 14:57 CULTURE BLOOD [BC] Stat 01/29/20 15:05 CULTURE BLOOD [BC] Stat 01/29/20 16:27 Chest w Cont [CT] Urgent 01/29/20 16:45 Admission Diagnosis [ADT] Stat Patient Status [ADT] Routine - Assessment/Plan Last 24 Hours: My Active Orders 01/29/20 14:35 EKG Documentation Completion [RC] STAT Peripheral IV Insertion Adult [OM.PC] Stat 01/29/20 14:36 Sodium Chloride 0.9% [Saline Flush] 10 ml FLUSH ASDIRECTED PRN 01/29/20 14:37 Peripheral IV Care [RC] . DIRECTED Blood Culture x2 Reflex Set [OM.PC] Stat 01/29/20 14:41 RT Aerosol Therapy [RC] ASDIRECTED 01/29/20 14:57 CULTURE BLOOD [BC] Stat 01/29/20 15:05 CULTURE BLOOD [BC] Stat 01/29/20 16:27 Chest w Cont [CT] Urgent 01/29/20 16:45 Admission Diagnosis [ADT] Stat Patient Status [ADT] Routine
--- NOTE | 2020-01-29 15:42 | CR ---
EXAMINATION: Chest 1V Frontal SEX: Female AGE: 64 years CLINICAL HISTORY: 64-year-old morbidly obese female with chest pain. Comparison exam 19 January 2019. INTERPRETATION: (External lard mixer leads. Severe degenerative arthritic changes both shoulder joints.) 1. Generalized volume loss and asymmetric new left lower lobe atelectasis consistent with poor inspiratory effort. 2. Normal cardiac silhouette without signs of pulmonary vascular congestion, cephalization of flow, alveolar edema or dependent pleural effusion. 3. No new lung mass lesion or focal lobar pneumonia (chronic middle lobe scarring). 4. No pneumothorax or pneumomediastinum. Midline tracheal bronchial airway unremarkable. No foreign bodies. 5. No free subdiaphragmatic air. CONCLUSION: Poor inspiration. Left lower lobe atelectasis.
--- NOTE | 2020-01-29 15:44 | CR ---
EXAMINATION: Abdomen 1V Flat SEX: Female AGE: 64 years CLINICAL HISTORY: 60-year-old obese female with firm, distended abdomen and hypoactive BS (bowel sounds). INTERPRETATION: 1. Nonspecific plain film exam of the abdomen. No plain film evidence of ascites. 2. Platelike atelectasis left lower lobe. 3. No foreign body, abdominal soft tissue mass lesion or signs of mechanical bowel obstruction. 4. No pathologic calcifications. 5. 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
[2020-01-29 15:49] LABS: SODIUM,NA 135 mmol/L (136-145)
[2020-01-29 15:50] LABS: ANION GAP 14.3 mEq/L (7-13); CHLORIDE,CL 99 mmol/L (98-107)
[2020-01-29] MEDS: Sodium Chloride 0.9% 10 ML Syringe FLUSH PRN (16:16)
[2020-01-29] MEDS ORDERED: Iopamidol 755 Mg/ML 100 ML Bottle IVPUSH ONE (16:28)
[2020-01-29] MEDS ORDERED: Furosemide 40 MG/4 ML VIAL IVPUSH ONE (18:15)
[2020-01-29] MEDS ORDERED: Albuterol/Ipratropium 3.0-0.5 MG/3 ML Neb Soln NEB PRN (18:16)
[2020-01-29] MEDS ORDERED: Docusate Sodium 100 MG Cap PO PRN (18:26)
[2020-01-29] MEDS ORDERED: Temazepam 15 MG Cap PO PRN (18:26)
[2020-01-29] MEDS ORDERED: Ondansetron 4 MG Tab.DIS PO PRN (18:26)
[2020-01-29] MEDS: Sodium Chloride 0.9% 1,000 ML IV SCH (18:37)
--- NOTE | 2020-01-29 18:41 | PCM.HP ---
H&P History of Present Illness - General Date of Service: 01/29/20 Admit Problem/Dx: Admission Diagnosis/Problem Admission Diagnosis/Problem Shortness of breath - History of Present Illness Initial Comments - Free Text/Narative: 64-year-old lady with a history of mental retardation, she lives in a custodial. She lives in a very protected environment. No apparent contact with high risk personnel for covid 19. Residents as well as caregivers are carefully checked She is on the pure and thickened liquid diet. She was noted to have cough with breakfast. Subsequently she was noted to have wheezing. Was brought into the emergency room. She was given DuoNeb and wheezing significantly improved, respiratory rate decreased. No nausea, vomiting. No fever. No cough since presentation. The patient is nonverbal so review of system is very difficult but the caregivers thought that she is on some sort of a pain. She has muscle contractures and she was given a muscle relaxant for pain control. That made her very sleepy and then lunch was withheld. - Related Data Allergies/Adverse Reactions: Allergies Allergy/AdvReac Type Severity Reaction Status Date / Time fish derived Allergy Unknown Hives Verified 01/29/20 18:02 egg Allergy Cannot Verified 01/29/20 18:02 Remember haloperidol [From Haldol] Allergy Lethargy Verified 01/29/20 18:02 shellfish derived Allergy Rash Verified 01/29/20 18:02 tuberculin, purified protein Allergy Rash Verified 01/29/20 18:02 deriva [Tuberculin,Purif.Prot.Deriv.] plastic adhesive tape Allergy Severe Blisters Uncoded 01/29/20 18:02 KASSIE hose Allergy Severe Blisters Uncoded 01/29/20 18:02 Home Medications: Home Meds Carboxymethylcellulose Sodium [Refresh Tears 0.5%] 1 drop EYEBOTH DAILY [History] Cholecalciferol (Vitamin D3) [Vitamin D3] 1,000 units PO DAILY 12/23/17 [History ] Latanoprost 1 drop EYERT BEDTIME 12/23/17 [History] Lisinopril 2.5 mg PO BEDTIME 12/23/17 [History] Magnesium Hydroxide [Milk of Magnesia] 20 ml PO BEDTIME 12/23/17 [History] hydroCHLOROthiazide [Hydrochlorothiazide] 12.5 mg PO DAILY 12/23/17 [History] Erythromycin Base [Erythromycin 0.5% Ophth Oint] 1 drop EYELF BID 07/23/18 [ History] tiZANidine [Zanaflex] 2 mg PO Q8HR PRN 01/19/19 [History] Methylcellulose (with Sugar) [Citrucel] 15 ml PO DAILY 01/29/20 [History] Vits A and D/White Pet/Lanolin [A and D Ointment] 1 dose TRDERM ASDIRECTED 01/28 [History] Past Medical History HEENT History: Reports: Allergic Rhinitis, Glaucoma, Impaired Vision, Other ( See Below) Other HEENT History: blind in right eye Cardiovascular History: Reports: Hypertension Respiratory History: Reports: Other (See Below) Other Respiratory History: Aspiration Pneumonia Gastrointestinal History: Reports: Other (See Below) Other Gastrointestinal History: PICA Genitourinary History: Reports: Urinary Incontinence [employer] History: Reports: None Musculoskeletal History: Reports: Other (See Below) Other Musculoskeletal History: non weight bearing, contracture Neurological History: Reports: Cerebral Palsy Other Neuro History: unresponsive at this time, unable to answer questions; comfort cares Psychiatric History: Reports: Other (See Below) Other Psychiatric History: PICA Endocrine/Metabolic History: Reports: None Hematologic History: Reports: Anemia Immunologic History: Reports: None Oncologic (Cancer) History: Reports: None Dermatologic History: Reports: Other (See Below) Other Dermatologic History: bilateral legs - Infectious Disease History Infectious Disease History: Reports: MRSA - Past Surgical History Other HEENT Surgeries/Procedures: 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 Cardiovascular Surgical History: Reports: None GI Surgical History: Reports: None Female Surgical History: Reports: None Neurological Surgical History: Reports: None Musculoskeletal Surgical History: Reports: None Social & Family History - Family History Family Medical History: Noncontributory - Tobacco Use Smoking Status *Q: Never Smoker Second Hand Smoke Exposure: No - Caffeine Use Caffeine Use: Reports: None - Recreational Drug Use Recreational Drug Use: No - Living Situation & Occupation Living situation: Reports: Single, Extended Care Facility Occupation: Disabled H&P Review of Systems - Review of Systems: Review Of Systems: See Below (Unable to obtain From the patient, all information is obtained from caregivers) Reason Not Obtained: Unable to obtain since the patient is nonverbal Exam - Exam Exam: See Below - Vital Signs Vital Signs: Last Vital Signs Temp 98.6 F 01/29/20 14:20 Pulse 90 01/29/20 14:41 Resp 36 H 01/29/20 14:20 BP 126/70 01/29/20 14:20 Pulse Ox 98 01/29/20 14:41 Weight: 159 lb 14.4 oz - Exam General: Alert, Other (In no distress). No: Oriented, Cooperative HEENT: Other (Closed left eye) Lungs: Decreased Breath Sounds, Wheezing (Mild) Cardiovascular: Regular Rate, Regular Rhythm GI/Abdominal Exam: Normal Bowel Sounds, Soft, Non-Tender, No Distention Extremities: Pedal Edema (Trace bilateral) Neuro Extensive - Mental Status: Alert. No: Oriented x3 Psychiatric: No: Agitated - Patient Data Lab Results Last 24 hrs: Laboratory Results - last 24 hr 01/29/20 01/29/20 01/29/20 Range/Units 14:57 14:57 14:57 WBC 12.2 H (5.0-10.0) 10^3/uL RBC 3.95 L (4.2-5.4) 10^6/uL Hgb 12.5 (12.0-16.0) g/dL Hct 37.3 (37.0-47.0) % MCV 94.4 (80-100) fL MCH 31.6 (27.0-34.0) pg MCHC 33.5 (33.0-35.0) g/dL Plt Count 240 (150-450) 10^3/uL Neut % (Auto) 84.2 H (42.2-75.2) % Lymph % (Auto) 5.6 L (20.5-50.1) % [place] % (Auto) 10.0 H (2-8) % Eos % (Auto) 0.1 L (1.0-3.0) % Baso % (Auto) 0.1 (0.0-1.0) % D-Dimer, Quantitative > 5000 H (0-400) ng/mL Sodium 135 L (136-145) mmol/L Potassium 5.3 H (3.5-5.1) mmol/L Chloride 99 (98-107) mmol/L Carbon Dioxide 27 (21-32) mmol/L Anion Gap 14.3 H (7-13) mEq/L BUN 36 H (7-18) mg/dL Creatinine 1.18 H (0.55-1.02) mg/dL Est Cr Clr Drug Dosing 41.59 mL/min Estimated GFR (MDRD) 46 BUN/Creatinine Ratio 30.5 (No establ ref range) Glucose 134 H (74-99) mg/dL Lactic Acid (0.4-2.0) mmol/L Calcium 8.8 (8.5-10.1) mg/dL Total Bilirubin 0.3 (0.2-1.0) mg/dL AST 347 H (15-37) U/L ALT 286 H (14-59) U/L Alkaline Phosphatase 409 H (46-116) U/L Lactate Dehydrogenase 432 H (81-234) U/L Creatine Kinase 102 (16-191) U/L Troponin I < 0.017 (0.000-0.056) ng/mL C-Reactive Protein 18.8 H (0.0-0.9) mg/dL B-Natriuretic Peptide 36 (0-100) pg/ml Total Protein 7.1 (6.4-8.2) g/dL Albumin 3.1 L (3.4-5.0) g/dL Globulin 4.0 Albumin/Globulin Ratio 0.78 04/20/20 Range/Units 14:57 WBC (5.0-10.0) 10^3/uL RBC (4.2-5.4) 10^6/uL Hgb (12.0-16.0) g/dL Hct (37.0-47.0) % MCV (80-100) fL MCH (27.0-34.0) pg MCHC (33.0-35.0) g/dL Plt Count (150-450) 10^3/uL Neut % (Auto) (42.2-75.2) % Lymph % (Auto) (20.5-50.1) % [place] % (Auto) (2-8) % Eos % (Auto) (1.0-3.0) % Baso % (Auto) (0.0-1.0) % D-Dimer, Quantitative (0-400) ng/mL Sodium (136-145) mmol/L Potassium (3.5-5.1) mmol/L Chloride (98-107) mmol/L Carbon Dioxide (21-32) mmol/L Anion Gap (7-13) mEq/L BUN (7-18) mg/dL Creatinine (0.55-1.02) mg/dL Est Cr Clr Drug Dosing mL/min Estimated GFR (MDRD) BUN/Creatinine Ratio (No establ ref range) Glucose (74-99) mg/dL Lactic Acid 1.4 (0.4-2.0) mmol/L Calcium (8.5-10.1) mg/dL Total Bilirubin (0.2-1.0) mg/dL AST (15-37) U/L ALT (14-59) U/L Alkaline Phosphatase (46-116) U/L Lactate Dehydrogenase (81-234) U/L Creatine Kinase (16-191) U/L Troponin I (0.000-0.056) ng/mL C-Reactive Protein (0.0-0.9) mg/dL B-Natriuretic Peptide (0-100) pg/ml Total Protein (6.4-8.2) g/dL Albumin (3.4-5.0) g/dL Globulin Albumin/Globulin Ratio Result Diagrams: 01/29/20 14:57 01/29/20 14:57 Peter Results Last 24 hrs: Microbiology 01/29/20 15:05 Anaerobic Blood Culture - Final Blood - Venous - Lab Draw - Problem List (1) Hyperkalemia SNOMED Code(s): 72573300 ICD Code: E87.5 - HYPERKALEMIA Status: Acute Current Visit: Yes (2) Elevated liver enzymes SNOMED Code(s): 468656604 ICD Code: R74.8 - ABNORMAL LEVELS OF OTHER SERUM ENZYMES Status: Acute Current Visit: Yes (3) Shortness of breath SNOMED Code(s): 079238421 ICD Code: R06.02 - SHORTNESS OF BREATH Status: Acute Current Visit: Yes (4) Bronchitis SNOMED Code(s): 18959099 ICD Code: J40 - BRONCHITIS, NOT SPECIFIED ACUTE OR CHRONIC Status: Acute Current Visit: No (5) Mental retardation SNOMED Code(s): 277434449 ICD Code: F79 - UNSPECIFIED INTELLECTUAL DISABILITIES Status: Chronic Current Visit: No Problem List Initiated/Reviewed/Updated: Yes Orders Last 24hrs: Active Orders 24 hr Category Date Time Status Admission Diagnosis [ADT] Stat ADT 01/29/20 16:45 Ordered Patient Status [ADT] Routine ADT 01/29/20 16:45 Active Antiembolic Devices [RC] PER UNIT ROUTINE Care 01/29/20 18:26 Ordered EKG Documentation Completion [RC] STAT Care 01/29/20 14:35 Active Oxygen Therapy [RC] PRN Care 01/29/20 18:26 Ordered Peripheral IV Care [RC] . DIRECTED Care 01/29/20 14:37 Active RT Aerosol Therapy [RC] ASDIRECTED Care 01/29/20 14:41 Active RT Aerosol Therapy [RC] ASDIRECTED Care 01/29/20 18:16 Ordered Up With Assistance [RC] ASDIRECTED Care 01/29/20 18:26 Ordered VTE/DVT Education [RC] PER UNIT ROUTINE Care 01/29/20 18:26 Ordered Vital Signs [RC] Q4H Care 01/29/20 18:26 Ordered International Dysphagia Diet [DIET] Diet 01/30/20 Breakfast Ordered Pureed Diet [DIET] Diet 01/29/20 Breakfast Active Abdomen Ltd [US] Routine Exams 01/29/20 18:14 Ordered Chest w Cont [CT] Urgent Exams 01/29/20 16:27 Stop Req BASIC METABOLIC PANEL,BMP [CHEM] AM Lab 01/30/20 05:15 Ordered CBC WITH AUTO DIFF [HEME] AM Lab 01/30/20 05:15 Ordered CULTURE BLOOD [BC] Stat Lab 01/29/20 14:57 Received CULTURE BLOOD [BC] Stat Lab 01/29/20 15:05 Results HEPATIC FUNCTION PANEL,HFP [CHEM] AM Lab 01/30/20 05:11 Ordered LIPASE [CHEM] AM Lab 01/30/20 05:11 Ordered Acetaminophen [Tylenol] Med 01/29/20 18:26 Ordered 650 mg PO Q6H PRN Albuterol/Ipratropium [DuoNeb 3.0-0.5 MG/3 ML] Med 01/29/20 18:16 Ordered 3 ml NEB Q2H PRN Albuterol/Ipratropium [DuoNeb 3.0-0.5 MG/3 ML] Med 01/29/20 21:00 Ordered 3 ml NEB TID Carboxymethylcellulose Sodium [Refresh Tears 0.5%] Med 01/30/20 09:00 Ordered 1 drop EYEBOTH DAILY Docusate Sodium [Colace] Med 01/29/20 18:26 Ordered 100 mg PO BID PRN Erythromycin Base [Erythromycin 0.5% Ophth Oint] Med 01/29/20 21:00 Ordered 1 drop EYELF BID Heparin Sodium Med 01/29/20 22:00 Ordered 5,000 units SUBCUT Q8HR Latanoprost [Xalatan 0.005% Ophth Soln] Med 01/29/20 21:00 Ordered 1 drop EYERT BEDTIME Ondansetron [Zofran ODT] Med 01/29/20 18:26 Ordered 4 mg PO Q6H PRN Piperacillin/Tazobactam [Zosyn] 3.375 gm Med 01/29/20 18:45 Ordered Sodium Chloride 0.9% [Normal Saline] 100 ml IV Q6H Sodium Chloride 0.9% @ 75 MLS/HR(1000ml) Med 01/29/20 18:30 Ordered Sodium Chloride 0.9% [Normal Saline] 1,000 ml IV ASDIRECTED Sodium Chloride 0.9% [Saline Flush] Med 01/29/20 14:36 Active 10 ml FLUSH ASDIRECTED PRN Temazepam [Restoril] Med 01/29/20 18:26 Ordered 15 mg PO BEDTIME PRN Antiembolic Hose [OM.PC] Per Unit Routine Oth 01/29/20 18:26 Ordered Blood Culture x2 Reflex Set [OM.PC] Stat Oth 01/29/20 14:37 Ordered Peripheral IV Insertion Adult [OM.PC] Stat Oth 01/29/20 14:35 Ordered Resuscitation Status Routine Resus Stat 01/29/20 18:26 Ordered Medication Orders Acetaminophen (Tylenol) 650 mg PO Q6H PRN PRN Reason: Pain (Mild 1-3)/fever Albuterol/Ipratropium (Duoneb 3.0-0.5 Mg/3 Ml) 3 ml NEB Q2H PRN PRN Reason: sob Albuterol/Ipratropium (Duoneb 3.0-0.5 Mg/3 Ml) 3 ml NEB TID [facility] Artificial Tears (Liquitears 1.4% Ophth Soln) 0 ml EYEBOTH DAILY [facility] Docusate Sodium (Colace) 100 mg PO BID PRN PRN Reason: Constipation Erythromycin (Erythromycin 0.5% Ophth Oint) 0 gm EYELF BID [facility] Heparin Sodium (Porcine) (Heparin Sodium) 5,000 units SUBCUT Q8HR [facility] Sodium Chloride (Normal Saline) 1,000 mls @ 75 mls/hr IV ASDIRECTED [facility] Piperacillin Sod/Tazobactam (Sod 3.375 gm/ Sodium Chloride) 100 mls @ 200 mls/ hr IV Q6H [facility] Latanoprost (Xalatan 0.005% Ophth Soln) 0 ml EYERT BEDTIME [facility] Ondansetron HCl (Zofran Odt) 4 mg PO Q6H PRN PRN Reason: nausea, able to take PO Sodium Chloride (Saline Flush) 10 ml FLUSH ASDIRECTED PRN PRN Reason: Keep Vein Open Last Admin: 01/29/20 16:16 Dose: 10 ml Temazepam (Restoril) 15 mg PO BEDTIME PRN PRN Reason: Sleep Assessment/Plan Comment:: 64-year-old lady with a history of mental retardation, she lives in a custodial. She lives in a very protected environment. No apparent contact with high risk personnel for covid 19. Residents as well as caregivers are carefully checked She is on the pure and thickened liquid diet. She was noted to have cough with breakfast. Subsequently she was noted to have wheezing. Was brought into the emergency room. She was given DuoNeb and wheezing significantly improved, respiratory rate decreased. Respiratory distress Much improved after nebulizers We'll supplement oxygen as needed The patient has elevated d-dimer but other than that no significant risk factors for pulmonary embolism No significant leg edema. Has allergy to fish, likely would not cooperate with CT of the chest. We'll not pursue this further, DVT prophylaxis will be with subcutaneous heparin No apparent pneumonia on chest x-ray Possible bronchitis, possible aspiration The patient lives in a custodial has increased risk for potential gram- negative pneumonia We will treat the patient with Zosyn Obtain blood cultures I don't think we can obtain sputum culture Low risk for covid 19, will not pursue further testing or isolation Hyperkalemia The patient IV fluids, Lasix Hold APARNA inhibitor Elevated liver enzymes Will obtain right upper quadrant ultrasound Try to be careful with Tylenol Low risk for viral hepatitis Recheck liver enzymes, lipase in the morning Soft diet with thickened liquid for aspiration precautions DVT prophylaxis with subcutaneous heparin The patient is DNR, DNI as discussed with caregivers
[2020-01-29] MEDS: Piperacillin/Tazobactam 3.375 GM in Sodium Chloride 0.9% 100 ML IV SCH (19:44)
[2020-01-29] MEDS ORDERED: Albuterol/Ipratropium 3.0-0.5 MG/3 ML Neb Soln NEB SCH (21:00)
[2020-01-29] MEDS ORDERED: Latanoprost 0.005% Ophth Soln 2.5 ML Bottle EYERT SCH (21:00)
[2020-01-29] MEDS: Erythromycin Base 0.5% Ophth Oint 3.5 GM Tube EYELF SCH (21:19)
[2020-01-29] MEDS: Heparin Sodium 5,000 Units/ML Vial SUBCUT SCH (23:23)
[2020-01-30] MEDS: Piperacillin/Tazobactam 3.375 GM in Sodium Chloride 0.9% 100 ML IV SCH ×2 (01:59→08:20)
[2020-01-30] MEDS: Heparin Sodium 5,000 Units/ML Vial SUBCUT SCH ×3 (06:07→22:30)
[2020-01-30 06:59] LABS: ANION GAP 14.4 mEq/L (7-13)
[2020-01-30] MEDS: Polyvinyl Alcohol 1.4% Ophth Soln 15 ML Bottle EYEBOTH SCH (08:21)
[2020-01-30] MEDS: Sodium Chloride 0.9% 1,000 ML IV SCH (08:57)
[2020-01-30] MEDS ORDERED: LATANOPROST 0.005% EYERT SCH (09:33)
--- NOTE | 2020-01-30 09:56 | PCM.PN ---
- General Info Date of Service: 01/30/20 Subjective Update: Review of system is difficult since the patient is nonverbal Remained stable overnight - Review of Systems General: Denies: Fever - Patient Data Vitals - Most Recent: Last Vital Signs Temp 98.4 F 01/30/20 07:59 Pulse 114 H 01/30/20 09:00 Resp 20 01/30/20 07:59 BP 109/49 L 01/30/20 07:59 Pulse Ox 90 L 01/30/20 09:00 Weight - Most Recent: 164 lb 11.2 oz I&O - Last 24 Hours: Intake & Output 01/29/20 01/30/20 01/30/20 22:59 06:59 14:59 Intake Total 335 Balance 335 Lab Results Last 24 Hours: Laboratory Results - last 24 hr 01/29/20 01/29/20 01/29/20 Range/Units 14:57 14:57 14:57 WBC 12.2 H (5.0-10.0) 10^3/uL RBC 3.95 L (4.2-5.4) 10^6/uL Hgb 12.5 (12.0-16.0) g/dL Hct 37.3 (37.0-47.0) % MCV 94.4 (80-100) fL MCH 31.6 (27.0-34.0) pg MCHC 33.5 (33.0-35.0) g/dL Plt Count 240 (150-450) 10^3/uL Neut % (Auto) 84.2 H (42.2-75.2) % Lymph % (Auto) 5.6 L (20.5-50.1) % [place] % (Auto) 10.0 H (2-8) % Eos % (Auto) 0.1 L (1.0-3.0) % Baso % (Auto) 0.1 (0.0-1.0) % D-Dimer, Quantitative > 5000 H (0-400) ng/mL Sodium 135 L (136-145) mmol/L Potassium 5.3 H (3.5-5.1) mmol/L Chloride 99 (98-107) mmol/L Carbon Dioxide 27 (21-32) mmol/L Anion Gap 14.3 H (7-13) mEq/L BUN 36 H (7-18) mg/dL Creatinine 1.18 H (0.55-1.02) mg/dL Est Cr Clr Drug Dosing 41.59 mL/min Estimated GFR (MDRD) 46 BUN/Creatinine Ratio 30.5 (No establ ref range) Glucose 134 H (74-99) mg/dL Lactic Acid (0.4-2.0) mmol/L Calcium 8.8 (8.5-10.1) mg/dL Total Bilirubin 0.3 (0.2-1.0) mg/dL Direct Bilirubin (0.0-0.2) mg/dL Indirect Bilirubin AST 347 H (15-37) U/L ALT 286 H (14-59) U/L Alkaline Phosphatase 409 H (46-116) U/L Lactate Dehydrogenase 432 H (81-234) U/L Creatine Kinase 102 (16-191) U/L Troponin I < 0.017 (0.000-0.056) ng/mL C-Reactive Protein 18.8 H (0.0-0.9) mg/dL B-Natriuretic Peptide 36 (0-100) pg/ml Total Protein 7.1 (6.4-8.2) g/dL Albumin 3.1 L (3.4-5.0) g/dL Globulin 4.0 Albumin/Globulin Ratio 0.78 Lipase (73-393) U/L 01/29/20 01/30/20 01/30/20 Range/Units 14:57 06:25 06:25 WBC 9.2 (5.0-10.0) 10^3/uL RBC 3.80 L (4.2-5.4) 10^6/uL Hgb 11.9 L (12.0-16.0) g/dL Hct 35.5 L (37.0-47.0) % MCV 93.4 (80-100) fL MCH 31.3 (27.0-34.0) pg MCHC 33.5 (33.0-35.0) g/dL Plt Count 207 (150-450) 10^3/uL Neut % (Auto) 91.8 H (42.2-75.2) % Lymph % (Auto) 2.2 L (20.5-50.1) % [place] % (Auto) 5.7 (2-8) % Eos % (Auto) 0.2 L (1.0-3.0) % Baso % (Auto) 0.1 (0.0-1.0) % D-Dimer, Quantitative (0-400) ng/mL Sodium 137 (136-145) mmol/L Potassium 4.4 (3.5-5.1) mmol/L Chloride 102 (98-107) mmol/L Carbon Dioxide 25 (21-32) mmol/L Anion Gap 14.4 H (7-13) mEq/L BUN 37 H (7-18) mg/dL Creatinine 1.32 H (0.55-1.02) mg/dL Est Cr Clr Drug Dosing 37.18 mL/min Estimated GFR (MDRD) 41 BUN/Creatinine Ratio (No establ ref range) Glucose 128 H (74-99) mg/dL Lactic Acid 1.4 (0.4-2.0) mmol/L Calcium 8.5 (8.5-10.1) mg/dL Total Bilirubin 0.7 (0.2-1.0) mg/dL Direct Bilirubin 0.3 H (0.0-0.2) mg/dL Indirect Bilirubin 0.4 AST 300 H (15-37) U/L ALT 314 H (14-59) U/L Alkaline Phosphatase 341 H (46-116) U/L Lactate Dehydrogenase (81-234) U/L Creatine Kinase (16-191) U/L Troponin I (0.000-0.056) ng/mL C-Reactive Protein (0.0-0.9) mg/dL B-Natriuretic Peptide (0-100) pg/ml Total Protein 6.3 L (6.4-8.2) g/dL Albumin 2.6 L (3.4-5.0) g/dL Globulin 3.7 Albumin/Globulin Ratio 0.70 Lipase 56 L (73-393) U/L Peter Results Last 24 Hours: Microbiology 01/29/20 15:05 Anaerobic Blood Culture - Final Blood - Venous - Lab Draw Med Orders - Current: Current Medications Acetaminophen (Tylenol) 650 mg PO Q6H PRN PRN Reason: Pain (Mild 1-3)/fever Albuterol/Ipratropium (Duoneb 3.0-0.5 Mg/3 Ml) 3 ml NEB Q2H PRN PRN Reason: sob Last Admin: 01/30/20 09:03 Dose: 3 ml Albuterol/Ipratropium (Duoneb 3.0-0.5 Mg/3 Ml) 3 ml NEB TIDRT [facility] Artificial Tears (Liquitears 1.4% Ophth Soln) 0 ml EYEBOTH DAILY [facility] Last Admin: 01/30/20 08:21 Dose: 1 drop Docusate Sodium (Colace) 100 mg PO BID PRN PRN Reason: Constipation Erythromycin (Erythromycin 0.5% Ophth Oint) 0 gm EYELF BID [facility] Heparin Sodium (Porcine) (Heparin Sodium) 5,000 units SUBCUT Q8HR [facility] Last Admin: 01/30/20 06:07 Dose: 5,000 units Sodium Chloride (Normal Saline) 1,000 mls @ 75 mls/hr IV ASDIRECTED [facility] Last Admin: 01/30/20 08:57 Dose: 75 mls/hr Piperacillin Sod/Tazobactam (Sod 3.375 gm/ Sodium Chloride) 100 mls @ 200 mls/ hr IV Q6H [facility] Last Infusion: 01/30/20 08:56 Dose: Infused Latanoprost (Xalatan 0.005% Ophth Soln) 0 ml EYERT BEDTIME [facility] Ondansetron HCl (Zofran Odt) 4 mg PO Q6H PRN PRN Reason: nausea, able to take PO Sodium Chloride (Saline Flush) 10 ml FLUSH ASDIRECTED PRN PRN Reason: Keep Vein Open Last Admin: 01/29/20 16:16 Dose: 10 ml Temazepam (Restoril) 15 mg PO BEDTIME PRN PRN Reason: Sleep Discontinued Medications Albuterol (Proventil Neb Soln) 2.5 mg NEB ONETIME ONE Stop: 01/29/20 14:42 Last Admin: 01/29/20 14:57 Dose: 2.5 mg Albuterol/Ipratropium (Duoneb 3.0-0.5 Mg/3 Ml) 3 ml NEB TID [facility] Last Admin: 01/29/20 21:19 Dose: Not Given Erythromycin (Erythromycin 0.5% Ophth Oint) 0 gm EYELF BID [facility] Last Admin: 01/29/20 21:19 Dose: Not Given Furosemide (Lasix) 20 mg IVPUSH NOW ONE Stop: 01/29/20 18:16 Last Admin: 01/29/20 18:41 Dose: 20 mg Iopamidol (Isovue-370 (76%)) 100 ml IVPUSH ONETIME ONE Stop: 01/29/20 16:29 Last Admin: 01/29/20 20:01 Dose: Not Given Latanoprost (Xalatan 0.005% Ophth Soln) 0 ml EYERT BEDTIME [facility] Last Admin: 01/29/20 21:19 Dose: Not Given - Exam General: Alert. No: Oriented Lungs: Clear to Auscultation. No: Wheezing (Resolved) Cardiovascular: Regular Rate, Regular Rhythm GI/Abdominal Exam: No Distention. No: Tender Extremities: Pedal Edema (Trace bilateral) Neurological: No New Focal Deficit, Other (Severe contractures) Psy/Mental Status: Alert, Labile Mood (Sometimes crying out) Sepsis Event Note - Evaluation Sepsis Screening Result: Sepsis Risk - Focused Exam Vital Signs: Vital Signs Temp Pulse Resp BP BP Pulse Ox Pulse Ox 01/30/20 09:00 114 H 90 L 01/30/20 07:59 98.4 F 96 20 109/49 L 94 L 01/30/20 04:00 99.6 F 112 H 24 H 85/43 L 95 01/30/20 00:00 99.2 F 114 H 24 H 108/48 L 95 Date Exam was Performed: 01/30/20 Time Exam was Performed: 09:53 - Problem List & Annotations (1) Hyperkalemia SNOMED Code(s): 11779709 Code(s): E87.5 - HYPERKALEMIA Status: Acute Current Visit: Yes (2) Elevated liver enzymes SNOMED Code(s): 964186386 Code(s): R74.8 - ABNORMAL LEVELS OF OTHER SERUM ENZYMES Status: Acute Current Visit: Yes (3) Shortness of breath SNOMED Code(s): 852787125 Code(s): R06.02 - SHORTNESS OF BREATH Status: Acute Current Visit: Yes (4) Bronchitis SNOMED Code(s): 73392645 Code(s): J40 - BRONCHITIS, NOT SPECIFIED ACUTE OR CHRONIC Status: Acute Current Visit: No (5) Mental retardation SNOMED Code(s): 235364050 Code(s): F79 - UNSPECIFIED INTELLECTUAL DISABILITIES Status: Chronic Current Visit: No - Problem List Review Problem List Initiated/Reviewed/Updated: Yes - My Orders Last 24 Hours: My Active Orders 01/29/20 18:16 RT Aerosol Therapy [RC] ,, Albuterol/Ipratropium [DuoNeb 3.0-0.5 MG/3 ML] 3 ml NEB Q2H PRN 01/29/20 18:26 Antiembolic Devices [RC] 08,20 Oxygen Therapy [RC] .PRN Up With Assistance [RC] ASDIRECTED VTE/DVT Education [RC] PER UNIT ROUTINE Vital Signs [RC] 04,08,12,16,20,00 Acetaminophen [Tylenol] 650 mg PO Q6H PRN Docusate Sodium [Colace] 100 mg PO BID PRN Ondansetron [Zofran ODT] 4 mg PO Q6H PRN Temazepam [Restoril] 15 mg PO BEDTIME PRN Antiembolic Hose [OM.PC] Per Unit Routine Resuscitation Status Routine 01/29/20 18:30 Sodium Chloride 0.9% [Normal Saline] 1,000 ml IV ASDIRECTED 01/29/20 20:00 Piperacillin/Tazobactam [Zosyn] 3.375 gm Sodium Chloride 0.9% [Normal Saline] 100 ml IV Q6H 01/29/20 22:00 Heparin Sodium 5,000 units SUBCUT Q8HR 01/30/20 09:00 Abdomen Ltd [US] Routine Polyvinyl Alcohol [LiquiTears 1.4% Ophth Soln] 0 ml EYEBOTH DAILY 01/30/20 09:32 Erythromycin Base [Erythromycin 0.5% Ophth Oint] 0 gm EYELF BID 01/30/20 09:33 Latanoprost [Xalatan 0.005% Ophth Soln] 0 ml EYERT BEDTIME 01/30/20 15:00 Albuterol/Ipratropium [DuoNeb 3.0-0.5 MG/3 ML] 3 ml NEB TIDRT 01/30/20 Breakfast International Dysphagia Diet [DIET] 01/31/20 05:11 HEPATIC FUNCTION PANEL,HFP [CHEM] AM 01/31/20 05:15 BASIC METABOLIC PANEL,BMP [CHEM] AM CBC WITH AUTO DIFF [HEME] AM - Plan Plan:: 64-year-old lady with a history of mental retardation, she lives in a fdc. She lives in a very protected environment. No apparent contact with high risk personnel for covid 19. Residents as well as caregivers are carefully checked She is on the pure and thickened liquid diet. She was noted to have cough with breakfast. Subsequently she was noted to have wheezing. Was brought into the emergency room. She was given DuoNeb and wheezing significantly improved, respiratory rate decreased. Respiratory distress Much improved after nebulizers Resolved by now We'll supplement oxygen as needed We'll monitor closely No apparent pneumonia on chest x-ray Possible bronchitis, possible aspiration The patient lives in a fdc has increased risk for potential gram- negative pneumonia We will treat the patient with Zosyn Pending blood cultures I don't think we can obtain sputum culture Low risk for covid 19, will not pursue further testing or isolation Hyperkalemia Resolved with treatment with IV fluids, Lasix We will stop fluids and Lasix Hold APARNA inhibitor Elevated liver enzymes Will obtain right upper quadrant ultrasound Try to be careful with Tylenol Low risk for viral hepatitis Recheck liver enzymes, lipase in the morning Soft diet with thickened liquid for aspiration precautions DVT prophylaxis with subcutaneous heparin The patient is DNR, DNI as discussed with caregivers
[2020-01-30] MEDS: Erythromycin Base 0.5% Ophth Oint 3.5 GM Tube EYELF SCH (10:33)
[2020-01-30] MEDS: Acetaminophen 325 MG Tab PO PRN (10:37)
[2020-01-30] MEDS: Piperacillin/Tazobactam 2.25 GM in Sodium Chloride 0.9% 100 ML IV SCH ×2 (12:51→18:07)
[2020-01-30] MEDS: Albuterol/Ipratropium 3.0-0.5 MG/3 ML Neb Soln NEB SCH ×2 (15:25→21:58)
--- NOTE | 2020-01-30 18:00 | US ---
EXAMINATION: Abdomen Ltd SEX: Female AGE: 64 years CLINICAL HISTORY: 64-year-old female with abnormal liver function tests and RUQ pain. History of "CHOLELITHIASIS" on previous ultrasound 23 August 2018. Reevaluate please. Interpretation: 1. Distended gallbladder with several mobile dependent intraluminal echogenic "shadowing" gallstones. 2. Homogeneous normal liver density without discrete intrahepatic cystic or solid mass lesion and normal common bile duct diameter (5 mm). Normal noninflamed gallbladder wall. Note: "Difficult" exam technically (patient developmentally challenged) otherwise unremarkable. 3. No ascites. Nonvisualization pancreas. CONCLUSION: Cholelithiasis. Limited exam.
[2020-01-30] MEDS: Sodium Chloride 0.9% 10 ML Syringe FLUSH PRN ×2 (18:07→21:27)
[2020-01-30] MEDS: ERYTHROMYCIN BASE 0.5% EYELF SCH (22:00)
[2020-01-31] MEDS: Sodium Chloride 0.9% 10 ML Syringe FLUSH PRN ×4 (00:11→11:53)
[2020-01-31] MEDS: Piperacillin/Tazobactam 2.25 GM in Sodium Chloride 0.9% 100 ML IV SCH ×3 (00:12→11:53)
[2020-01-31] MEDS: Heparin Sodium 5,000 Units/ML Vial SUBCUT SCH ×2 (05:51→14:38)
[2020-01-31 06:54] LABS: ANION GAP 12.9 mEq/L (7-13)
[2020-01-31] MEDS: Albuterol/Ipratropium 3.0-0.5 MG/3 ML Neb Soln NEB SCH (07:49)
[2020-01-31] MEDS: Acetaminophen 325 MG Tab PO PRN (08:26)
[2020-01-31] MEDS: Polyvinyl Alcohol 1.4% Ophth Soln 15 ML Bottle EYEBOTH SCH (08:28)
[2020-01-31] MEDS: ERYTHROMYCIN BASE 0.5% EYELF SCH (08:28)
--- NOTE | 2020-01-31 12:30 | PCM.DCSUM1 ---
Discharge Summary - Hospital Course Free Text/Narrative:: 64 yo F with PMH of cerebral palsy, severe mental retardation who was admitted with SOB, no fever. Likely 2/2 aspiration pneumonia. SOB improved after admission with neb treatments and IV zosyn LFTs noted to be elevated. RUQ checked, gall stones but no features of cholecystitis, CBD not dilated. Discharged back to detention with oral augmentin Follow up with PCP Diagnosis: Stroke: No - Discharge Data Discharge Date: 01/31/20 Discharge Disposition: DC/Tfer to Other 70 Condition: Stable - Referral to Home Health Primary Care Physician: Camila Bernal MD - Patient Instructions Diet: Usual Diet as Tolerated Activity: As Tolerated - Discharge Plan *PRESCRIPTION DRUG MONITORING PROGRAM REVIEWED*: No *COPY OF PRESCRIPTION DRUG MONITORING REPORT IN PATIENT IRVING: No Prescriptions/Med Rec: Amoxicillin/Clavulanate K [Augmentin 500-125 MG] 1 tab PO Q8H 7 Days #21 tab Home Medications: Home Meds Carboxymethylcellulose Sodium [Refresh Tears 0.5%] 1 drop EYEBOTH DAILY [History] Cholecalciferol (Vitamin D3) [Vitamin D3] 1,000 units PO DAILY 12/23/17 [History ] Latanoprost 1 drop EYERT BEDTIME 12/23/17 [History] Lisinopril 2.5 mg PO BEDTIME 12/23/17 [History] Magnesium Hydroxide [Milk of Magnesia] 20 ml PO BEDTIME 12/23/17 [History] hydroCHLOROthiazide [Hydrochlorothiazide] 12.5 mg PO DAILY 12/23/17 [History] Erythromycin Base [Erythromycin 0.5% Ophth Oint] 1 drop EYELF BID 07/23/18 [ History] tiZANidine [Zanaflex] 2 mg PO Q8HR PRN 01/19/19 [History] Methylcellulose (with Sugar) [Citrucel] 15 ml PO DAILY 01/29/20 [History] Vits A and D/White Pet/Lanolin [A and D Ointment] 1 dose TRDERM ASDIRECTED 01/28 [History] Amoxicillin/Clavulanate K [Augmentin 500-125 MG] 1 tab PO Q8H 7 Days #21 tab [Rx] Oxygen Therapy Mode: Room Air Forms: ED Department Discharge Referrals: Camila Bernal MD [Primary Care Provider] - - Discharge Summary/Plan Comment DC Time >30 min.: Yes - General Info Date of Service: 01/31/20 Admission Dx/Problem (Free Text: Admission Diagnosis/Problem Admission Diagnosis/Problem Shortness of breath Subjective Update: Review of system cannot be obtained since the patient is nonverbal Remained stable overnight - Patient Data Vitals - Most Recent: Last Vital Signs Temp 36.8 C 01/31/20 07:51 Pulse 98 01/31/20 07:51 Resp 20 01/31/20 07:51 BP 110/51 L 01/31/20 07:51 Pulse Ox 93 L 01/31/20 07:51 Weight - Most Recent: 74.344 kg I&O - Last 24 hours: Intake & Output 01/30/20 01/31/20 01/31/20 22:59 06:59 14:59 Intake Total 510 197 240 Balance 510 197 240 Lab Results - Last 24 hrs: Laboratory Results - last 24 hr 01/31/20 01/31/20 Range/Units 06:22 06:22 WBC 9.2 (5.0-10.0) 10^3/uL RBC 3.26 L (4.2-5.4) 10^6/uL Hgb 10.3 L D (12.0-16.0) g/dL Hct 30.8 L (37.0-47.0) % MCV 94.5 (80-100) fL MCH 31.6 (27.0-34.0) pg MCHC 33.4 (33.0-35.0) g/dL Plt Count 213 (150-450) 10^3/uL Neut % (Auto) 84.9 H (42.2-75.2) % Lymph % (Auto) 3.8 L (20.5-50.1) % [place] % (Auto) 7.5 (2-8) % Eos % (Auto) 3.6 H (1.0-3.0) % Baso % (Auto) 0.2 (0.0-1.0) % Sodium 140 (136-145) mmol/L Potassium 3.9 (3.5-5.1) mmol/L Chloride 105 (98-107) mmol/L Carbon Dioxide 26 (21-32) mmol/L Anion Gap 12.9 (7-13) mEq/L BUN 39 H (7-18) mg/dL Creatinine 1.33 H (0.55-1.02) mg/dL Est Cr Clr Drug Dosing 36.90 mL/min Estimated GFR (MDRD) 40 Glucose 119 H (74-99) mg/dL Calcium 8.0 L (8.5-10.1) mg/dL Total Bilirubin 0.8 (0.2-1.0) mg/dL Direct Bilirubin 0.4 H (0.0-0.2) mg/dL Indirect Bilirubin 0.4 AST 282 H (15-37) U/L ALT 386 H (14-59) U/L Alkaline Phosphatase 372 H (46-116) U/L Total Protein 6.0 L (6.4-8.2) g/dL Albumin 2.3 L (3.4-5.0) g/dL Globulin 3.7 Albumin/Globulin Ratio 0.62 VIRY Results - Last 24 hrs: Microbiology 01/29/20 15:05 Aerobic Blood Culture - Preliminary Blood - Venous - Lab Draw NO GROWTH AFTER 1 DAY Anaerobic Blood Culture - Final 01/29/20 14:57 Aerobic Blood Culture - Preliminary Blood - Venous NO GROWTH AFTER 1 DAY Anaerobic Blood Culture - Preliminary NO GROWTH AFTER 1 DAY Med Orders - Current: Current Medications Acetaminophen (Tylenol) 650 mg PO Q6H PRN PRN Reason: Pain (Mild 1-3)/fever Last Admin: 01/31/20 08:26 Dose: 650 mg Albuterol/Ipratropium (Duoneb 3.0-0.5 Mg/3 Ml) 3 ml NEB Q2H PRN PRN Reason: sob Last Admin: 01/30/20 09:03 Dose: 3 ml Albuterol/Ipratropium (Duoneb 3.0-0.5 Mg/3 Ml) 3 ml NEB TIDRT [facility] Last Admin: 01/31/20 07:49 Dose: 3 ml Artificial Tears (Liquitears 1.4% Ophth Soln) 0 ml EYEBOTH DAILY [facility] Last Admin: 01/31/20 08:28 Dose: 1 drop Docusate Sodium (Colace) 100 mg PO BID PRN PRN Reason: Constipation Erythromycin (Erythromycin 0.5% Ophth Oint) 0 gm EYELF BID [facility] Last Admin: 01/31/20 08:28 Dose: 1 applic Heparin Sodium (Porcine) (Heparin Sodium) 5,000 units SUBCUT Q8HR [facility] Last Admin: 01/31/20 05:51 Dose: 5,000 units Piperacillin Sod/Tazobactam (Sod 2.25 gm/ Sodium Chloride) 100 mls @ 200 mls/ hr IV Q6HR [facility] Last Admin: 01/31/20 11:53 Dose: 200 mls/hr Latanoprost (Xalatan 0.005% Ophth Soln) 0 ml EYERT BEDTIME [facility] Last Admin: 01/30/20 22:01 Dose: 1 drop Ondansetron HCl (Zofran Odt) 4 mg PO Q6H PRN PRN Reason: nausea, able to take PO Sodium Chloride (Saline Flush) 10 ml FLUSH ASDIRECTED PRN PRN Reason: Keep Vein Open Last Admin: 01/31/20 11:53 Dose: 10 ml Temazepam (Restoril) 15 mg PO BEDTIME PRN PRN Reason: Sleep Discontinued Medications Albuterol (Proventil Neb Soln) 2.5 mg NEB ONETIME ONE Stop: 01/29/20 14:42 Last Admin: 01/29/20 14:57 Dose: 2.5 mg Albuterol/Ipratropium (Duoneb 3.0-0.5 Mg/3 Ml) 3 ml NEB TID [facility] Last Admin: 01/29/20 21:19 Dose: Not Given Erythromycin (Erythromycin 0.5% Ophth Oint) 0 gm EYELF BID [facility] Last Admin: 01/30/20 10:33 Dose: Not Given Furosemide (Lasix) 20 mg IVPUSH NOW ONE Stop: 01/29/20 18:16 Last Admin: 01/29/20 18:41 Dose: 20 mg Sodium Chloride (Normal Saline) 1,000 mls @ 75 mls/hr IV ASDIRECTED [facility] Last Admin: 01/30/20 08:57 Dose: 75 mls/hr Piperacillin Sod/Tazobactam (Sod 3.375 gm/ Sodium Chloride) 100 mls @ 200 mls/ hr IV Q6H [facility] Last Infusion: 01/30/20 08:56 Dose: Infused Iopamidol (Isovue-370 (76%)) 100 ml IVPUSH ONETIME ONE Stop: 01/29/20 16:29 Last Admin: 01/29/20 20:01 Dose: Not Given Latanoprost (Xalatan 0.005% Ophth Soln) 0 ml EYERT BEDTIME [facility] Last Admin: 01/29/20 21:19 Dose: Not Given - Exam General: Reports: Other (at baseline mentation) HEENT: Reports: Pupils Equal, Pupils Reactive Neck: Reports: Supple Lungs: Reports: Clear to Auscultation, Normal Respiratory Effort Cardiovascular: Reports: Regular Rate, Regular Rhythm GI/Abdominal Exam: Normal Bowel Sounds, Soft, Non-Tender Extremities: Other (contracted extremities bilaterally)
[2020-01-31 14:31] VITALS: BP 111/53; PULSE 89
== END 2020-01-31 14:20 | disposition other institution (70) ==
LOC: DL.ED 14:19 → DL.MS 16:45
PROVIDERS: ADMIT Internal Medicine; ATTEND Internal Medicine
DX: J40 Bronchitis, not specified as acute or chronic (principal); E87.5 Hyperkalemia; R74.8 Abnormal levels of other serum enzymes; F79 Unspecified intellectual disabilities; R06.03 Acute respiratory distress; I10 Essential (primary) hypertension; Z79.899 Other long term (current) drug therapy; Z88.8 Allergy status to other drugs, medicaments and biological substances; Z91.012 Allergy to eggs; Z91.013 Allergy to seafood
CPT/HCPCS: 36415; 71045; 74018; 76705; 80048; 80053; 80076; 82550; 83605; 83615; 83690; 83880; 84484; 85025; 85379; 86140; 87040; 93005; 94640; 96361; 96365; 96366; 96372; 96375; 96376; 99284; 99285-25; A9270-GY; G0378; J1644; J1940; J2543; J7030; J7050; J7613-GY; J7620-GY

== ENCOUNTER 2020-09-08 09:34 | Emergency (ER) | payer MEDICARE, MEDICAID ==
[2020-09-08 09:53] VITALS: PULSE 65
--- NOTE | 2020-09-08 09:58 | EDM.PDOC ---
ED HPI GENERAL MEDICAL PROBLEM - General Chief Complaint: Respiratory Problem Stated Complaint: AMBULANCE Time Seen by Provider: 09/08/20 09:49 Source of Information: Reports: Other (care provider) History Limitations: Reports: Other (cognitive delay) - History of Present Illness INITIAL COMMENTS - FREE TEXT/NARRATIVE: Patient is here for low pulse oxygen readings and low blood pressures. She has been on health watch at the home for the last 24 hours for concerns of possible pneumonia. Her blood pressure and overall condition has been declining since that time. Onset: Gradual Duration: Day(s): (1) - Related Data Allergies Allergy/AdvReac Type Severity Reaction Status Date / Time egg Allergy Intermediate Cannot Verified 09/08/20 09:46 Remember fish derived Allergy Intermediate Hives Verified 09/08/20 09:46 shellfish derived Allergy Intermediate Rash Verified 09/08/20 09:46 tuberculin, purified protein Allergy Intermediate Rash Verified 09/08/20 09:46 deriva [Tuberculin,Purif.Prot.Deriv.] haloperidol [From Haldol] Allergy Mild Lethargy Verified 09/08/20 09:46 plastic adhesive tape Allergy Severe Blisters Uncoded 09/08/20 09:46 KASSIE hose Allergy Severe Blisters Uncoded 09/08/20 09:46 Home Meds: Home Meds Carboxymethylcellulose Sodium [Refresh Tears 0.5%] 1 drop EYEBOTH DAILY 12/23/17 [History] Cholecalciferol (Vitamin D3) [Vitamin D3] 1,000 units PO DAILY 12/23/17 [History] Latanoprost 1 drop EYERT BEDTIME 12/23/17 [History] Lisinopril 2.5 mg PO BEDTIME 12/23/17 [History] Magnesium Hydroxide [Milk of Magnesia] 20 ml PO BEDTIME 12/23/17 [History] hydroCHLOROthiazide [Hydrochlorothiazide] 12.5 mg PO DAILY 12/23/17 [History] Erythromycin Base [Erythromycin 0.5% Ophth Oint] 1 drop EYELF BID 07/23/18 [History] tiZANidine [Zanaflex] 2 mg PO Q8HR 01/19/19 [History] Methylcellulose (with Sugar) [Citrucel] 15 ml PO DAILY 01/29/20 [History] Vits A and D/White Pet/Lanolin [A and D Ointment] 1 dose TRDERM ASDIRECTED 01/29/20 [History] Acetaminophen [Acetaminophen Extra Strength] 500 mg PO QID 09/08/20 [History] Past Medical History HEENT History: Reports: Allergic Rhinitis, Glaucoma, Impaired Vision, Other (See Below) Other HEENT History: blind in right eye Cardiovascular History: Reports: Hypertension Respiratory History: Reports: Other (See Below) Other Respiratory History: Aspiration Pneumonia Gastrointestinal History: Reports: Other (See Below) Other Gastrointestinal History: PICA Genitourinary History: Reports: Urinary Incontinence RN INTERN History: Reports: None Musculoskeletal History: Reports: Other (See Below) Other Musculoskeletal History: non weight bearing, contracture Neurological History: Reports: Cerebral Palsy Other Neuro History: unresponsive at this time, unable to answer questions; comfort cares Psychiatric History: Reports: Other (See Below) Other Psychiatric History: PICA Endocrine/Metabolic History: Reports: None Hematologic History: Reports: Anemia Immunologic History: Reports: None Oncologic (Cancer) History: Reports: None Dermatologic History: Reports: Other (See Below) Other Dermatologic History: bilateral legs - Infectious Disease History Infectious Disease History: Reports: MRSA - Past Surgical History Other HEENT Surgeries/Procedures: 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 Cardiovascular Surgical History: Reports: None GI Surgical History: Reports: None Female Surgical History: Reports: None Neurological Surgical History: Reports: None Musculoskeletal Surgical History: Reports: None Social & Family History - Family History Family Medical History: No Pertinent Family History - Caffeine Use Caffeine Use: Reports: None - Living Situation & Occupation Living situation: Reports: Single, Extended Care Facility Occupation: Disabled ED ROS GENERAL - Review of Systems Review Of Systems: Unable To Obtain Reason Not Obtained: non-verbal ED EXAM, GENERAL - Physical Exam Exam: See Below Exam Limited By: Other (cognitive delay) General Appearance: Mild Distress Eye Exam: Right Eye: Proptosis, Left Eye: Other (sunken) Ears: Normal External Exam Nose: Normal Inspection Head: Atraumatic, Normocephalic Neck: Normal Inspection, Supple Respiratory/Chest: No Accessory Muscle Use, Other (groaning and grunting) Cardiovascular: Normal Peripheral Pulses, Regular Rate, Rhythm, No Edema GI/Abdominal: Soft, Non-Tender, No Distention, No Mass (Female) Exam: Deferred Rectal (Female) Exam: Deferred Extremities: Normal Inspection, No Pedal Edema Neurological: Other (groaning and grunting, opening right eye spontaneously) Skin Exam: Warm, Dry, Intact Lymphatic: No Adenopathy Course - Vital Signs Last Recorded V/S: Last Vital Signs Temp 96.7 F L 09/08/20 09:49 Pulse 65 09/08/20 09:49 Resp 20 09/08/20 09:49 BP 97/42 L 09/08/20 11:09 Pulse Ox 98 09/08/20 11:09 - Orders/Labs/Meds Orders: Active Orders 24 hr Category Date Time Status EKG Documentation Completion [RC] STAT Care 09/08/20 09:49 Ordered CULTURE BLOOD [BC] Stat Lab 09/08/20 09:52 Ordered UA W/MICROSCOPIC [URIN] Stat Lab 09/08/20 10:48 Results Blood Culture x2 Reflex Set [OM.PC] Stat Oth 09/08/20 09:50 Ordered Labs: Laboratory Tests 09/08/20 09/08/20 09/08/20 Range/Units 10:08 10:08 10:08 WBC 3.1 L (5.0-10.0) 10^3/uL RBC 3.03 L (4.2-5.4) 10^6/uL Hgb 9.9 L (12.0-16.0) g/dL Hct 31.0 L (37.0-47.0) % MCV 102.3 H D (80-100) fL MCH 32.7 (27.0-34.0) pg MCHC 31.9 L (33.0-35.0) g/dL Plt Count 140 L (150-450) 10^3/uL Neut % (Auto) 66.9 (42.2-75.2) % Lymph % (Auto) 18.7 L (20.5-50.1) % [place] % (Auto) 13.8 H (2-8) % Eos % (Auto) 0.3 L (1.0-3.0) % Baso % (Auto) 0.3 (0.0-1.0) % Sodium 135 L (136-145) mmol/L Potassium 4.0 (3.5-5.1) mmol/L Chloride 102 (98-107) mmol/L Carbon Dioxide 27 (21-32) mmol/L Anion Gap 10.0 (7-13) mEq/L BUN 35 H (7-18) mg/dL Creatinine 1.15 H (0.55-1.02) mg/dL Est Cr Clr Drug Dosing 40.34 mL/min Estimated GFR (MDRD) 47 BUN/Creatinine Ratio 30.4 (No establ ref range) Glucose 142 H (74-99) mg/dL Lactic Acid 1.6 (0.4-2.0) mmol/L Calcium 7.5 L (8.5-10.1) mg/dL Total Bilirubin 0.2 (0.2-1.0) mg/dL AST 70 H (15-37) U/L ALT 63 H (14-59) U/L Alkaline Phosphatase 372 H (46-116) U/L Troponin I < 0.017 (0.000-0.056) ng/mL Total Protein 5.7 L (6.4-8.2) g/dL Albumin 2.5 L (3.4-5.0) g/dL Globulin 3.2 Albumin/Globulin Ratio 0.78 Urine Color (YELLOW) Urine Appearance (CLEAR) Urine pH (5.0-9.0) Ur Specific [place] (1.005-1.030) Urine Protein (NEGATIVE) Urine Glucose (UA) (NEGATIVE) Urine Ketones (NEGATIVE) Urine Occult Blood (NEGATIVE) Urine Nitrite (NEGATIVE) Urine Bilirubin (NEGATIVE) Urine Urobilinogen (0.2-1.0) mg/dL Ur Leukocyte Esterase (NEGATIVE) 09/08/20 Range/Units 10:48 WBC (5.0-10.0) 10^3/uL RBC (4.2-5.4) 10^6/uL Hgb (12.0-16.0) g/dL Hct (37.0-47.0) % MCV (80-100) fL MCH (27.0-34.0) pg MCHC (33.0-35.0) g/dL Plt Count (150-450) 10^3/uL Neut % (Auto) (42.2-75.2) % Lymph % (Auto) (20.5-50.1) % [place] % (Auto) (2-8) % Eos % (Auto) (1.0-3.0) % Baso % (Auto) (0.0-1.0) % Sodium (136-145) mmol/L Potassium (3.5-5.1) mmol/L Chloride (98-107) mmol/L Carbon Dioxide (21-32) mmol/L Anion Gap (7-13) mEq/L BUN (7-18) mg/dL Creatinine (0.55-1.02) mg/dL Est Cr Clr Drug Dosing mL/min Estimated GFR (MDRD) BUN/Creatinine Ratio (No establ ref range) Glucose (74-99) mg/dL Lactic Acid (0.4-2.0) mmol/L Calcium (8.5-10.1) mg/dL Total Bilirubin (0.2-1.0) mg/dL AST (15-37) U/L ALT (14-59) U/L Alkaline Phosphatase (46-116) U/L Troponin I (0.000-0.056) ng/mL Total Protein (6.4-8.2) g/dL Albumin (3.4-5.0) g/dL Globulin Albumin/Globulin Ratio Urine Color Yellow (YELLOW) Urine Appearance Clear (CLEAR) Urine pH 7.0 (5.0-9.0) Ur Specific [place] 1.020 (1.005-1.030) Urine Protein 30 H (NEGATIVE) Urine Glucose (UA) Negative (NEGATIVE) Urine Ketones Negative (NEGATIVE) Urine Occult Blood Negative (NEGATIVE) Urine Nitrite Negative (NEGATIVE) Urine Bilirubin Negative (NEGATIVE) Urine Urobilinogen 0.2 (0.2-1.0) mg/dL Ur Leukocyte Esterase Negative (NEGATIVE) - Radiology Interpretation Free Text/Narrative:: CT - bilateral perihilar interstitial infiltrates with areas of scarring or atelectasis. T12 vertebral body with acute or chronic compression fracture. age indeterminate fracture of the right posterior 11th rib Departure - Departure Time of Disposition: 11:18 Disposition: Home, Self-Care 01 Condition: Fair Clinical Impression: Atypical pneumonia - Discharge Information Forms: ED Department Discharge Additional Instructions: Azithromycin, 500 mg today then 250 mg for an additional 4 days Continue to monitor for possible aspiration Follow up with primary care provider in 3-5 days Sepsis Event Note (ED) - Evaluation Sepsis Screening Result: No Definite Risk - Focused Exam Vital Signs: Vital Signs Temp Pulse Resp BP Pulse Ox 09/08/20 11:09 97/42 L 98 09/08/20 10:08 95 09/08/20 09:49 96.7 F L 65 20 85/44 L 94 L - My Orders Last 24 Hours: My Active Orders 09/08/20 09:49 EKG Documentation Completion [RC] STAT 09/08/20 09:50 Blood Culture x2 Reflex Set [OM.PC] Stat 09/08/20 09:52 CULTURE BLOOD [BC] Stat 09/08/20 10:48 UA W/MICROSCOPIC [URIN] Stat - Assessment/Plan Last 24 Hours: My Active Orders 09/08/20 09:49 EKG Documentation Completion [RC] STAT 09/08/20 09:50 Blood Culture x2 Reflex Set [OM.PC] Stat 09/08/20 09:52 CULTURE BLOOD [BC] Stat 09/08/20 10:48 UA W/MICROSCOPIC [URIN] Stat
--- NOTE | 2020-09-08 10:48 | CT ---
PROCEDURE INFORMATION: Exam: CT Chest Without Contrast; Diagnostic Exam date and time: 09/08/2020 10:13 AM Age: 65 years old Clinical indication: Other: Hypoxia, possible aspiration TECHNIQUE: Imaging protocol: Diagnostic computed tomography of the chest without contrast. Radiation optimization: All CT scans at this facility use at least one of these dose optimization techniques: automated exposure control; mA and/or kV adjustment per patient size (includes targeted exams where dose is matched to clinical indication); or iterative reconstruction. COMPARISON: CR Chest 1V Frontal 01/29/2020 3:20 PM FINDINGS: Images are degraded by motion Lungs: Bilateral perihilar interstitial prominence with areas of atelectasis and ground-glass attenuation. No focal consolidation identified. Pleural space: Small pleural effusion. Heart: Unremarkable. No cardiomegaly. No pericardial effusion. Aorta: Unremarkable. No aortic aneurysm. Lymph nodes: Unremarkable. No enlarged lymph nodes. Spleen: Splenomegaly. Bones/joints: Fracture of the posterior right 11th rib could be acute or chronic. Old left rib fractures. Marked compression deformity of the T12 vertebral body. This is age indeterminate. Associated retropulsion of posterior aspect of T12 results in moderate central canal narrowing. Degenerative arthritis in the spine and shoulders Soft tissues: Unremarkable. IMPRESSION: 1. Bilateral perihilar interstitial infiltrates with areas of scarring or atelectasis. . 2. Marked compression of the T12 vertebral body could be acute or chronic but results in moderate narrowing of the central canal at T12. 3. Age indeterminate fracture right posterior 11th rib. 4. Small left pleural effusion. 5. Splenomegaly 6. Images are markedly degraded by motion.
[2020-09-08 10:58] LABS: CHLORIDE,CL 102 mmol/L (98-107); SODIUM,NA 135 mmol/L (136-145)
[2020-09-08 11:10] VITALS: BP 97/42
== END 2020-09-08 12:28 | disposition home or self-care (01) ==
LOC: DL.ED 09:34
DX: J18.9 Pneumonia, unspecified organism (principal); I10 Essential (primary) hypertension; G80.9 Cerebral palsy, unspecified; Z91.012 Allergy to eggs; Z91.018 Allergy to other foods; Z88.7 Allergy status to serum and vaccine; Z88.8 Allergy status to other drugs, medicaments and biological substances; Z91.048 Other nonmedicinal substance allergy status; Z79.899 Other long term (current) drug therapy
CPT/HCPCS: 36415; 71250; 80053; 81001; 83605; 84484; 85025; 87040; 93005; 99285-25

== ENCOUNTER 2021-03-15 09:08 | Emergency (ER) | payer MEDICARE, MEDICAID ==
[2021-03-15] MEDS ORDERED: Sodium Chloride 0.9% 10 ML Syringe FLUSH PRN (09:14)
[2021-03-15] MEDS ORDERED: Sodium Chloride 0.9% 1,000 ML IV ONE (09:31)
[2021-03-15 09:53] VITALS: BP 77/41; PULSE 54
[2021-03-15 10:10] LABS: ANION GAP 12.9 mEq/L (7-13)
--- NOTE | 2021-03-15 11:12 | EDM.PDOC ---
Scribed by Tina Vanegas 03/15/21916 for Jerry Mayer MD ED HPI GENERAL MEDICAL PROBLEM - General Chief Complaint: General Stated Complaint: IN BY AMBULANCE Time Seen by Provider: 03/15/21 09:12 Source of Information: Reports: EMS, Old Records, RN, RN Notes Reviewed History Limitations: Reports: Other (Nonverbal pt, severe MR) - History of Present Illness INITIAL COMMENTS - FREE TEXT/NARRATIVE: Pt arrives from [facility] Home by [facility] with report of low BP, swelling of feet and tongue, and decreased alertness. Pt is severely mentally retarded and nonverbal, therefore unable to provide any history. No caregiver or family present upon arrival of pt to ER. Onset: Unknown/Unsure Location: Reports: Generalized - Related Data Allergies Allergy/AdvReac Type Severity Reaction Status Date / Time egg Allergy Intermediate Cannot Verified 09/08/20 09:46 Remember fish derived Allergy Intermediate Hives Verified 09/08/20 09:46 shellfish derived Allergy Intermediate Rash Verified 09/08/20 09:46 tuberculin, purified protein Allergy Intermediate Rash Verified 09/08/20 09:46 deriva [Tuberculin,Purif.Prot.Deriv.] haloperidol [From Haldol] Allergy Mild Lethargy Verified 09/08/20 09:46 plastic adhesive tape Allergy Severe Blisters Uncoded 09/08/20 09:46 KASSIE hose Allergy Severe Blisters Uncoded 09/08/20 09:46 Home Meds: Home Meds Carboxymethylcellulose Sodium [Refresh Tears 0.5%] 1 drop EYEBOTH DAILY 12/23/17 [History] Cholecalciferol (Vitamin D3) [Vitamin D3] 1,000 units PO DAILY 12/23/17 [History] Latanoprost 1 drop EYERT BEDTIME 12/23/17 [History] Lisinopril 2.5 mg PO BEDTIME 12/23/17 [History] Magnesium Hydroxide [Milk of Magnesia] 20 ml PO BEDTIME 12/23/17 [History] hydroCHLOROthiazide [Hydrochlorothiazide] 12.5 mg PO DAILY 12/23/17 [History] Erythromycin Base [Erythromycin 0.5% Ophth Oint] 1 drop EYELF BID 07/23/18 [History] tiZANidine [Zanaflex] 2 mg PO Q8HR 01/19/19 [History] Methylcellulose (with Sugar) [Citrucel] 15 ml PO DAILY 01/29/20 [History] Vits A and D/White Pet/Lanolin [A and D Ointment] 1 dose TRDERM ASDIRECTED 01/29/20 [History] Acetaminophen [Acetaminophen Extra Strength] 500 mg PO QID 09/08/20 [History] Past Medical History HEENT History: Reports: Allergic Rhinitis, Glaucoma, Impaired Vision, Other (See Below) Other HEENT History: blind in right eye Cardiovascular History: Reports: Hypertension Respiratory History: Reports: Other (See Below) Other Respiratory History: Aspiration Pneumonia Gastrointestinal History: Reports: Other (See Below) Other Gastrointestinal History: PICA Genitourinary History: Reports: Urinary Incontinence CERTIFIED NURSES AIDE History: Reports: None Musculoskeletal History: Reports: Other (See Below) Other Musculoskeletal History: non weight bearing, contracture Neurological History: Reports: Cerebral Palsy Other Neuro History: unresponsive at this time, unable to answer questions; comfort cares Psychiatric History: Reports: Other (See Below) Other Psychiatric History: PICA Endocrine/Metabolic History: Reports: None Hematologic History: Reports: Anemia Immunologic History: Reports: None Oncologic (Cancer) History: Reports: None Dermatologic History: Reports: Other (See Below) Other Dermatologic History: bilateral legs - Infectious Disease History Infectious Disease History: Reports: MRSA - Past Surgical History Other HEENT Surgeries/Procedures: 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 Cardiovascular Surgical History: Reports: None GI Surgical History: Reports: None Female Surgical History: Reports: None Neurological Surgical History: Reports: None Musculoskeletal Surgical History: Reports: None Social & Family History - Family History Family Medical History: No Pertinent Family History - Caffeine Use Caffeine Use: Reports: None - Living Situation & Occupation Living situation: Reports: Single, Extended Care Facility Occupation: Disabled ED ROS GENERAL - Review of Systems Review Of Systems: Unable To Obtain Reason Not Obtained: nonverbal ED EXAM, GENERAL - Physical Exam Exam: See Below Exam Limited By: Physical Impairment General Appearance: Lethargic, Obese, Other (Severe M.R.) Eye Exam: Left Eye: Other (Chronic left eye atrophy) Nose: Normal Inspection, No Blood Throat/Mouth: Normal Lips, No Airway Compromise, Other (Dry oral mucosa, no acute tongue swelling on exam. Chronic glossal hypertrophy.) Head: Atraumatic, Normocephalic Neck: Normal Inspection Respiratory/Chest: No Respiratory Distress, Decreased Breath Sounds, Crackles Cardiovascular: Bradycardia GI/Abdominal: Normal Bowel Sounds, Soft, Non-Tender Neurological: Other (Severe M.R., spontaneous movement of B/L upper and lower extremities) Skin Exam: Warm, Dry, Normal Color #1 Interpretation EKG Date: 03/15/21 Time: 09:56 Rhythm: Other (sinus rhythm) Rate (Beats/Min): 53 [place]: Normal P-Wave: Present QRS: Normal ST-T: Normal QT: Normal Comparison: No Change EKG Interpretation Comments: Motion artifact. Course - Vital Signs Last Recorded V/S: Last Vital Signs Temp 96 F L 03/15/21 09:48 Pulse 54 L 03/15/21 09:48 Resp 12 03/15/21 09:48 BP 77/41 L 03/15/21 09:48 Pulse Ox 98 03/15/21 09:48 Recheck BP 116/58 - Orders/Labs/Meds Orders: Active Orders 24 hr Category Date Time Status EKG 12 Lead [EKG Documentation Completion] [] STAT Care 03/15/21 09:14 Active Peripheral IV Care [] . DIRECTED Care 03/15/21 09:15 Active CULTURE BLOOD [BC] Stat Lab 03/15/21 09:23 Received CULTURE BLOOD [BC] Stat Lab 03/15/21 09:36 Results Sodium Chloride 0.9% [Saline Flush] Med 03/15/21 09:14 Active 10 ml FLUSH ASDIRECTED PRN Blood Culture x2 Reflex Set [OM.PC] Stat Oth 03/15/21 09:13 Ordered Peripheral IV Insertion Adult [OM.PC] Stat Oth 03/15/21 09:14 Ordered Medication Orders Sodium Chloride (Sodium Chloride 0.9% 10 Ml Syringe) 10 ml FLUSH ASDIRECTED PRN PRN Reason: Keep Vein Open Last Admin: 03/15/21 09:48 Dose: 10 ml Documented by: AIDAN Labs: Laboratory Tests 03/15/21 03/15/21 03/15/21 Range/Units 09:36 09:36 09:36 WBC 3.9 L (5.0-10.0) 10^3/uL RBC 3.49 L (4.2-5.4) 10^6/uL Hgb 11.5 L D (12.0-16.0) g/dL Hct 36.7 L (37.0-47.0) % MCV 105.2 H (80-100) fL MCH 33.0 (27.0-34.0) pg MCHC 31.3 L (33.0-35.0) g/dL Plt Count 129 L (150-450) 10^3/uL Neut % (Auto) 60.2 (42.2-75.2) % Lymph % (Auto) 25.7 (20.5-50.1) % [place] % (Auto) 10.8 H (2-8) % Eos % (Auto) 2.8 (1.0-3.0) % Baso % (Auto) 0.5 (0.0-1.0) % Sodium 141 (136-145) mmol/L Potassium 4.9 (3.5-5.1) mmol/L Chloride 107 (98-107) mmol/L Carbon Dioxide 26 (21-32) mmol/L Anion Gap 12.9 (7-13) mEq/L BUN 37 H (7-18) mg/dL Creatinine 1.04 H (0.55-1.02) mg/dL Est Cr Clr Drug Dosing 38.22 mL/min Estimated GFR (MDRD) 53 BUN/Creatinine Ratio 35.6 (No establ ref range) Glucose 113 H (70-99) mg/dL Lactic Acid 1.6 (0.4-2.0) mmol/L Calcium 8.2 L (8.5-10.1) mg/dL Magnesium 3.6 H (1.8-2.4) mg/dL Total Bilirubin 0.2 (0.2-1.0) mg/dL AST 28 (15-37) U/L ALT 41 (14-59) U/L Alkaline Phosphatase 179 H (46-116) U/L Troponin I High Sens 13 (<=51) pg/mL Total Protein 6.5 (6.4-8.2) g/dL Albumin 3.2 L (3.4-5.0) g/dL Globulin 3.3 Albumin/Globulin Ratio 0.97 TSH, Ultra Sensitive 3.39 (0.36-3.74) uIU/mL Urine Color (YELLOW) Urine Appearance (CLEAR) Urine pH (5.0-9.0) Ur Specific [place] (1.005-1.030) Urine Protein (NEGATIVE) Urine Glucose (UA) (NEGATIVE) Urine Ketones (NEGATIVE) Urine Occult Blood (NEGATIVE) Urine Nitrite (NEGATIVE) Urine Bilirubin (NEGATIVE) Urine Urobilinogen (0.2-1.0) mg/dL Ur Leukocyte Esterase (NEGATIVE) 03/15/21 Range/Units 09:43 WBC (5.0-10.0) 10^3/uL RBC (4.2-5.4) 10^6/uL Hgb (12.0-16.0) g/dL Hct (37.0-47.0) % MCV (80-100) fL MCH (27.0-34.0) pg MCHC (33.0-35.0) g/dL Plt Count (150-450) 10^3/uL Neut % (Auto) (42.2-75.2) % Lymph % (Auto) (20.5-50.1) % [place] % (Auto) (2-8) % Eos % (Auto) (1.0-3.0) % Baso % (Auto) (0.0-1.0) % Sodium (136-145) mmol/L Potassium (3.5-5.1) mmol/L Chloride (98-107) mmol/L Carbon Dioxide (21-32) mmol/L Anion Gap (7-13) mEq/L BUN (7-18) mg/dL Creatinine (0.55-1.02) mg/dL Est Cr Clr Drug Dosing mL/min Estimated GFR (MDRD) BUN/Creatinine Ratio (No establ ref range) Glucose (70-99) mg/dL Lactic Acid (0.4-2.0) mmol/L Calcium (8.5-10.1) mg/dL Magnesium (1.8-2.4) mg/dL Total Bilirubin (0.2-1.0) mg/dL AST (15-37) U/L ALT (14-59) U/L Alkaline Phosphatase (46-116) U/L Troponin I High Sens (<=51) pg/mL Total Protein (6.4-8.2) g/dL Albumin (3.4-5.0) g/dL Globulin Albumin/Globulin Ratio TSH, Ultra Sensitive (0.36-3.74) uIU/mL Urine Color Yellow (YELLOW) Urine Appearance Slightly cloudy (CLEAR) Urine pH 7.0 (5.0-9.0) Ur Specific [place] 1.020 (1.005-1.030) Urine Protein Negative (NEGATIVE) Urine Glucose (UA) Negative (NEGATIVE) Urine Ketones Negative (NEGATIVE) Urine Occult Blood Negative (NEGATIVE) Urine Nitrite Negative (NEGATIVE) Urine Bilirubin Negative (NEGATIVE) Urine Urobilinogen 0.2 (0.2-1.0) mg/dL Ur Leukocyte Esterase Negative (NEGATIVE) Meds: Medications Generic Name Dose Route Start Last Admin Trade Name Freq PRN Reason Stop Dose Admin Sodium Chloride 10 ml 03/15/21 09:14 03/15/21 09:48 Sodium Chloride 0.9% 10 Ml Syringe FLUSH 10 ml ASDIRECTED PRN Administration Keep Vein Open Discontinued Medications Generic Name Dose Route Start Last Admin Trade Name Freq PRN Reason Stop Dose Admin Sodium Chloride 1,000 mls @ 999 mls/hr 03/15/21 09:31 03/15/21 09:48 Normal Saline IV 03/15/21 10:31 999 mls/hr .BOLUS ONE Administration - Re-Assessments/Exams Free Text/Narrative Re-Assessment/Exam: 03/15/21 10:00 [employer] tell[employer] supervisor arrives, and finds the pt looks well to her, and seems to be at baseline. Departure - Departure Time of Disposition: 11:11 Disposition: Home, Self-Care 01 Condition: Good Clinical Impression: Encounter for medical screening examination, Low blood pressure reading - Discharge Information *PRESCRIPTION DRUG MONITORING PROGRAM REVIEWED*: Not Applicable *COPY OF PRESCRIPTION DRUG MONITORING REPORT IN PATIENT IRVING: Not Applicable Instructions: Medical Screening Exam Forms: ED Department Discharge Additional Instructions: Follow up in clinic if any further concerns. Sepsis Event Note (ED) - Focused Exam Vital Signs: Vital Signs Temp Pulse Resp BP Pulse Ox 03/15/21 09:48 96 F L 54 L 12 77/41 L 98 - My Orders Last 24 Hours: My Active Orders 03/15/21 09:13 Blood Culture x2 Reflex Set [OM.PC] Stat 03/15/21 09:14 EKG 12 Lead [EKG Documentation Completion] [RC] STAT Sodium Chloride 0.9% [Saline Flush] 10 ml FLUSH ASDIRECTED PRN Peripheral IV Insertion Adult [OM.PC] Stat 03/15/21 09:15 Peripheral IV Care [RC] . DIRECTED 03/15/21 09:23 CULTURE BLOOD [BC] Stat 03/15/21 09:36 CULTURE BLOOD [BC] Stat - Assessment/Plan Last 24 Hours: My Active Orders 03/15/21 09:13 Blood Culture x2 Reflex Set [OM.PC] Stat 03/15/21 09:14 EKG 12 Lead [EKG Documentation Completion] [RC] STAT Sodium Chloride 0.9% [Saline Flush] 10 ml FLUSH ASDIRECTED PRN Peripheral IV Insertion Adult [OM.PC] Stat 03/15/21 09:15 Peripheral IV Care [RC] . DIRECTED 03/15/21 09:23 CULTURE BLOOD [BC] Stat 03/15/21 09:36 CULTURE BLOOD [BC] Stat I have read and agree with the documentation that has been completed regarding this visit. By signing this record, I attest that the documentation was completed in my physical presence and is an accurate record of the encounter.
== END 2021-03-15 12:03 | disposition home or self-care (01) ==
LOC: DL.ED 09:08
DX: I10 Essential (primary) hypertension (principal); Z91.048 Other nonmedicinal substance allergy status; G80.9 Cerebral palsy, unspecified; Z91.012 Allergy to eggs; Z91.013 Allergy to seafood; Z88.8 Allergy status to other drugs, medicaments and biological substances
CPT/HCPCS: 36415; 80053; 81003; 83605; 83735; 84443; 84484; 85025; 87040; 93005; 93010; 99283; 99285-25; J7030

== ENCOUNTER 2022-03-09 18:49 | Emergency (ER) | payer MEDICARE, MEDICAID ==
[2022-03-09 21:05] VITALS: BP 144/56; PULSE 66
== END 2022-03-09 21:35 ==
LOC: DL.ED 18:49
DX: T17.320A Food in larynx causing asphyxiation, initial encounter (principal); J98.11 Atelectasis; I10 Essential (primary) hypertension; Z79.899 Other long term (current) drug therapy; Z91.012 Allergy to eggs; Z91.013 Allergy to seafood; Z88.8 Allergy status to other drugs, medicaments and biological substances
CPT/HCPCS: 71045; 99284; 99284-25

== ENCOUNTER 2022-06-01 14:15 | Emergency (ER) | payer MEDICARE, MEDICAID | END 2022-06-01 15:07 | disposition left against medical advice (07) | LOC: DL.ED 14:15 | DX: Z53.21 Procedure and treatment not carried out due to patient leaving prior to being seen by health care provider (principal) ==

== ENCOUNTER 2022-06-03 07:50 | Emergency (ER) | payer MEDICARE, MEDICAID ==
[2022-06-03] MEDS ORDERED: Sodium Chloride 0.9% 10 ML Syringe FLUSH PRN (08:04)
[2022-06-03 08:28] VITALS: BP 139/58; PULSE 77
[2022-06-03 09:11] LABS: ANION GAP 12.7 mEq/L (7-13)
[2022-06-03] MEDS ORDERED: Pantoprazole 40 MG in Sodium Chloride 0.9% 100 ML IV SCH (09:15)
[2022-06-03] MEDS: Pantoprazole 40 MG Vial IVPUSH ONE ×2 (09:32→09:36)
== END 2022-06-03 10:16 | disposition home or self-care (01) ==
LOC: DL.ED 07:50
DX: K64.9 Unspecified hemorrhoids (principal); K92.1 Melena; K13.79 Other lesions of oral mucosa; J69.0 Pneumonitis due to inhalation of food and vomit; I10 Essential (primary) hypertension; Z91.012 Allergy to eggs; Z91.013 Allergy to seafood; Z91.048 Other nonmedicinal substance allergy status; Z79.899 Other long term (current) drug therapy; Z20.822 Contact with and (suspected) exposure to COVID-19
CPT/HCPCS: 36415; 71045; 80053; 82272; 83605; 83735; 85025; 85610; 86140; 87040; 93005; 99285; J3490; U0002; C9113

== ENCOUNTER 2022-08-30 21:32 | Inpatient (IN) | payer MEDICARE, MEDICAID ==
[2022-08-30 21:47] LABS: ANION GAP 14.2 mEq/L (7-13); CHLORIDE,CL 105 mmol/L (98-107); SODIUM,NA 140 mmol/L (136-145)
[2022-08-30 21:48] LABS: ESTIMATED GFR 50 mL/min (>=60)
[2022-08-30] MEDS ORDERED: Piperacillin/Tazobactam 4.5 GM in Sodium Chloride 0.9% 100 ML IV ONE (22:02)
[2022-08-30 22:18] LABS: CORONAVIRUS COVID-19 NAA NEGATIVE (NEGATIVE)
[2022-08-30] MEDS ORDERED: Sodium Chloride 0.9% 10 ML Syringe FLUSH PRN (22:39)
[2022-08-30] MEDS ORDERED: Ondansetron 4 MG/2 ML SDV IVPUSH PRN (22:39)
[2022-08-30] MEDS ORDERED: Acetaminophen 650 MG Supp RECTAL PRN (22:39)
[2022-08-30] MEDS ORDERED: Bisacodyl 5 MG Tab PO PRN (22:39)
[2022-08-30] MEDS ORDERED: Albuterol/Ipratropium 3.0-0.5 MG/3 ML Neb Soln NEB PRN (22:39)
[2022-08-30] MEDS ORDERED: Lactated Ringers 1,000 ML IV ONE (22:39)
[2022-08-30] MEDS ORDERED: Acetaminophen/oxyCODONE 325-5 MG Tab PO PRN (22:39)
[2022-08-30] MEDS ORDERED: Magnesium Hydroxide 400 MG/5 ML Susp 30 ML Cup PO PRN (22:39)
[2022-08-30] MEDS ORDERED: Acetaminophen 325 MG Tab PO PRN (22:39)
[2022-08-30] MEDS ORDERED: HYDROmorphone 0.5 MG/0.5 ML Syringe IVPUSH PRN (22:39)
[2022-08-30] MEDS ORDERED: Polyethylene Glycol 3350 Powder 17 GM Packet PO PRN (22:39)
[2022-08-30] MEDS ORDERED: guaiFENesin/Dextromethorphan 100-10 MG/5 ML Soln 5 ML Cup PO PRN (22:45)
[2022-08-30] MEDS ORDERED: hydrALAZINE 20 MG/ML SDV IVPUSH PRN (22:46)
[2022-08-30] MEDS ORDERED: Metoprolol Tartrate 5 MG/5 ML SDV IVPUSH PRN (22:46)
[2022-08-30] MEDS ORDERED: Ziprasidone Mesylate 20 MG Vial IM PRN (23:05)
[2022-08-31] MEDS: Lactated Ringers 1,000 ML IV SCH (02:24)
[2022-08-31] MEDS: Piperacillin/Tazobactam 3.375 GM in Sodium Chloride 0.9% 100 ML IV SCH ×4 (05:40→17:04)
[2022-08-31] MEDS ORDERED: Heparin Sodium 5,000 Units/ML Vial SUBCUT SCH (06:00)
[2022-08-31 07:13] LABS: ANION GAP 18.1 mEq/L (7-13)
[2022-08-31] MEDS: Saccharomyces Boulardii (Probiotic) 250 MG Cap PO SCH ×2 (11:57→20:41)
[2022-09-01] MEDS: Piperacillin/Tazobactam 3.375 GM in Sodium Chloride 0.9% 100 ML IV SCH ×3 (00:31→14:06)
[2022-09-01] MEDS: Lactated Ringers 1,000 ML IV SCH (00:33)
[2022-09-01 07:22] LABS: ANION GAP 14.5 mEq/L (7-13)
[2022-09-01] MEDS ORDERED: NA PHOS DI B RECTAL PRN (08:23)
[2022-09-01] MEDS ORDERED: NA PHOS M B RECTAL PRN (08:23)
[2022-09-01] MEDS ORDERED: [UNRECOGNIZED DRUG - OTHER] PO SCH (09:00)
[2022-09-01] MEDS ORDERED: Cholecalciferol (Vitamin D3) 10 MCG Tab PO SCH (09:00)
[2022-09-01] MEDS ORDERED: METHYLCELLULOSE PO SCH (09:00)
[2022-09-01] MEDS ORDERED: Erythromycin Base 0.5% Ophth Oint 3.5 GM Tube EYELF SCH (09:00)
[2022-09-01] MEDS ORDERED: Acetaminophen 500 MG Tab PO SCH (09:00)
[2022-09-01] MEDS: Saccharomyces Boulardii (Probiotic) 250 MG Cap PO SCH (10:42)
[2022-09-01] MEDS ORDERED: Nystatin Topical Powder 30 GM Bottle TOP SCH (11:30)
[2022-09-01] MEDS ORDERED: Vitamins A and D Oint 42.5 GM Tube TOP SCH (11:45)
[2022-09-01 12:38] VITALS: BP 101/47
[2022-09-01] MEDS: Atropine 1% Ophth Soln 5 ML BOTTLE SL SCH ×3 (15:19→22:05)
[2022-09-01] MEDS: Morphine 2 MG/ML SYRINGE IVPUSH PRN ×3 (15:19→23:51)
[2022-09-01] MEDS: LORazepam 2 MG/ML SDV IVPUSH PRN (22:05)
[2022-09-01] MEDS: Carboxymethylcellulose Sodium 1% Ophth Gel 0.4 ML UD EYERT SCH (22:05)
[2022-09-01] MEDS: Latanoprost 0.005% Ophth Soln 2.5 ML Bottle EYERT SCH (22:05)
[2022-09-02] MEDS: LORazepam 2 MG/ML SDV IVPUSH PRN ×3 (02:05→16:20)
[2022-09-02] MEDS: Atropine 1% Ophth Soln 5 ML BOTTLE SL SCH ×6 (02:22→23:55)
[2022-09-02] MEDS: Morphine 2 MG/ML SYRINGE IVPUSH PRN ×2 (04:00→11:45)
[2022-09-02] MEDS: Carboxymethylcellulose Sodium 1% Ophth Gel 0.4 ML UD EYERT SCH ×2 (11:45→22:39)
[2022-09-02] MEDS ORDERED: Acetaminophen 650 MG Supp RECTAL PRN (13:52)
[2022-09-02] MEDS ORDERED: LORazepam 2 MG/ML SDV IVPUSH PRN (18:48)
[2022-09-02] MEDS: Latanoprost 0.005% Ophth Soln 2.5 ML Bottle EYERT SCH (22:39)
[2022-09-03] MEDS: Morphine 2 MG/ML SYRINGE IVPUSH PRN ×2 (01:07→12:17)
[2022-09-03] MEDS: Atropine 1% Ophth Soln 5 ML BOTTLE SL SCH ×6 (02:46→23:11)
[2022-09-03] MEDS: Carboxymethylcellulose Sodium 1% Ophth Gel 0.4 ML UD EYERT SCH ×2 (09:19→20:40)
[2022-09-03] MEDS ORDERED: Morphine 10 MG/0.5 ML Oral Syringe SL PRN (13:19)
[2022-09-03] MEDS ORDERED: LORazepam 1 MG Tab PO PRN (13:23)
[2022-09-03] MEDS: Latanoprost 0.005% Ophth Soln 2.5 ML Bottle EYERT SCH (20:40)
[2022-09-04] MEDS: Atropine 1% Ophth Soln 5 ML BOTTLE SL SCH ×6 (02:49→22:10)
[2022-09-04] MEDS ORDERED: LORazepam 1 MG Tab PO PRN ×2 (07:32→07:33)
[2022-09-04] MEDS ORDERED: Morphine 10 MG/0.5 ML Oral Syringe SL PRN (07:32)
[2022-09-04] MEDS: Carboxymethylcellulose Sodium 1% Ophth Gel 0.4 ML UD EYERT SCH ×2 (08:48→20:22)
[2022-09-04] MEDS: Morphine 10 MG/0.5 ML Oral Syringe SL PRN ×2 (08:48→14:11)
[2022-09-04] MEDS ORDERED: LORazepam 1 MG Tab PO SCH (16:15)
[2022-09-04] MEDS ORDERED: Morphine 10 MG/0.5 ML Oral Syringe SL SCH ×2 (16:15→17:57)
[2022-09-04] MEDS: LORazepam 1 MG Tab PO SCH ×3 (18:05→22:09)
[2022-09-04] MEDS: Morphine 10 MG/0.5 ML Oral Syringe SL SCH ×2 (19:01→23:07)
[2022-09-04] MEDS: Latanoprost 0.005% Ophth Soln 2.5 ML Bottle EYERT SCH (20:22)
[2022-09-05] MEDS: LORazepam 1 MG Tab PO SCH ×8 (00:01→15:28)
[2022-09-05] MEDS: Atropine 1% Ophth Soln 5 ML BOTTLE SL SCH ×7 (02:09→20:51)
[2022-09-05] MEDS: Morphine 10 MG/0.5 ML Oral Syringe SL SCH ×5 (02:59→19:48)
[2022-09-05] MEDS: Carboxymethylcellulose Sodium 1% Ophth Gel 0.4 ML UD EYERT SCH (08:38)
[2022-09-05] MEDS ORDERED: Scopolamine 1.5 MG Transdermal Patch TOP ONE (19:53)
[2022-09-05] MEDS ORDERED: LORazepam 1 MG Tab PO SCH (20:00)
[2022-09-05 21:31] VITALS: PULSE 30
== END 2022-09-06 00:10 | disposition expired | DRG 177 ==
LOC: DL.ED 21:32 → DL.MS 22:05
PROVIDERS: ADMIT Internal Medicine; ATTEND Internal Medicine
DX: J69.0 Pneumonitis due to inhalation of food and vomit (principal); I10 Essential (primary) hypertension; A41.59 Other Gram-negative sepsis; J96.01 Acute respiratory failure with hypoxia; N17.9 Acute kidney failure, unspecified; F73 Profound intellectual disabilities; J98.11 Atelectasis; Z66 Do not resuscitate; Z51.5 Encounter for palliative care; Z20.822 Contact with and (suspected) exposure to COVID-19; I95.9 Hypotension, unspecified; E88.09 Other disorders of plasma-protein metabolism, not elsewhere classified; E87.5 Hyperkalemia; R73.9 Hyperglycemia, unspecified; R74.8 Abnormal levels of other serum enzymes; D69.6 Thrombocytopenia, unspecified; D50.9 Iron deficiency anemia, unspecified; J84.10 Pulmonary fibrosis, unspecified; T68.XXXA Hypothermia, initial encounter; H54.40 Blindness, one eye, unspecified eye; I50.9 Heart failure, unspecified; D63.8 Anemia in other chronic diseases classified elsewhere; J30.9 Allergic rhinitis, unspecified; B96.1 Klebsiella pneumoniae [K. pneumoniae] as the cause of diseases classified elsewhere; B95.2 Enterococcus as the cause of diseases classified elsewhere; G80.8 Other cerebral palsy; K59.09 Other constipation; R32 Unspecified urinary incontinence; K80.80 Other cholelithiasis without obstruction; M81.0 Age-related osteoporosis without current pathological fracture; F63.3 Trichotillomania; F45.9 Somatoform disorder, unspecified; I11.0 Hypertensive heart disease with heart failure; G80.9 Cerebral palsy, unspecified; R41.82 Altered mental status, unspecified; F50.89 Other specified eating disorder; Z28.9 Immunization not carried out for unspecified reason; Q66.89 Other specified congenital deformities of feet; Q66.4 Congenital talipes calcaneovalgus; Z91.012 Allergy to eggs; Z91.013 Allergy to seafood; Z88.8 Allergy status to other drugs, medicaments and biological substances; Z91.09 Other allergy status, other than to drugs and biological substances; Z79.899 Other long term (current) drug therapy; Z91.048 Other nonmedicinal substance allergy status
CPT/HCPCS: 0240U; 36415; 71045; 80048; 80053; 83605; 83735; 83880; 84145; 84484; 85025; 85730; 86140; 87040; 87070; 87077; 87186; 87205; 96365; 99223; 99233; 99238; 99285; A9270-GY; J1644; J2060; J2270; J2543; J3490; J7120; J7620-GY